=== PATIENT | female | born 1960 | race Caucasian/White ===

== ENCOUNTER → 2017-08-28 09:06 | Outpatient (CLI) | payer BC, SELFPAY ==
[2017-08-28 09:50] LABS: Basophils # 0.1 K/mm3 (0-0.2); Basophils % 0.8 % (0.1-2.0); Eosinophils # 0.2 K/mm3 (0.0-0.4); Eosinophils % 2.5 % (0.1-12.0); Hematocrit 41.5 % (37.0-47.0); Hemoglobin 12.5 g/dL (12.2-16.2); Mean Corpuscular HGB Conc 30.2 g/dL (31.8-35.4); Mean Corpuscular Hemoglobin 25.9 pg (27.0-31.2); Mean Platelet Volume 7.5 fl (7.4-10.4); Monocytes # 0.4 K/mm3 (0.1-1.0); Monocytes % 5.8 % (1.7-9.3); Neutrophils # 3.4 K/mm3 (1.8-7.8); Neutrophils % 56.9 % (37.0-80.0); Platelet Count 264 K/mm3 (142-424); Red Blood Count 4.83 M/mm3 (4.20-5.40); Red Cell Distribution Width 13.7 % (11.5-17.5)
[2017-08-28 14:24] LABS: Alanine Aminotransferase 28 U/L (12-78); Albumin Level 3.6 gm/dL (3.4-5.0); Albumin/Globulin Ratio 1.1 (1.1-1.8); Alkaline Phosphatase 84 U/L (46-116); Anion Gap 10.3 mEq/L (5-15); Aspartate Amino Transferase 19 U/L (15-37); Bilirubin,Total 0.4 mg/dL (0.2-1.0); Blood Urea Nitrogen 17 mg/dL (7-18); Calcium 9.3 mg/dL (8.5-10.1); Carbon Dioxide 31 mmol/L (21.0-32.0); Chloride 104 mmol/L (98-107); Chol/HDL Ratio 4.4 (1-3.5); Cholesterol 203 mg/dL (140-200); Creatinine,Serum 0.88 mg/dL (0.55-1.02); Estimated Glomerular Filt Rate 66 ml/min (>60); GFR (African American) 80 ML/MIN (>60); Globulin 3.2 gm/dl (1.3-3.2); Glucose 111 mg/dL (74-106); HDL Cholesterol 46 mg/dL (29-89); Iron 71 ug/dl (28-170); LDL Cholesterol 117 mg/dL (0-130); Potassium 4.3 mmoL/L (3.5-5.1); Sodium 141 mmol/L (136-145); T4 (Thyroxine) 9.5 ug/dl (4.7-13.3); Thyroid Stimulating Hormone 2.31 uIU/ml (0.358-3.740); Total Protein,Serum 6.8 gm/dL (6.4-8.2); Triglycerides 198 mg/dL (30-200); VLDL Cholesterol 40 mg/dL (0-40)
[2017-08-29 10:09] LABS: Vitamin D 25 Hydroxy 39.4 ng/mL (30.0-100.0)
== END ==
PROVIDERS: Visit Provider Family Medicine
DX: E03.9 Hypothyroidism, unspecified (principal); E78.5 Hyperlipidemia, unspecified; E61.1 Iron deficiency; F41.8 Other specified anxiety disorders; Z68.42 Body mass index [BMI] 45.0-49.9, adult
CPT/HCPCS: 36415; 80053; 80061; 82652; 83540; 84436; 84443; 85025

== ENCOUNTER → 2017-12-22 20:09 | Outpatient (REF) | payer BC, SELFPAY | LOC: LAB 20:09 | PROVIDERS: Visit Provider Nurse Practitioner Family | DX: J02.9 Acute pharyngitis, unspecified (principal) ==

== ENCOUNTER → 2018-09-07 14:00 | Outpatient (CLI) | payer BC, SELFPAY ==
--- NOTE | 2018-09-07 14:06 | XR_ITS ---
XR knee LT 4V Comparison: None History: Left knee pain. Technique: Weightbearing AP, lateral and Elias views were performed as well as oblique. Findings: Mild narrowing at the medial compartment on today's standing views. Minimal sharpening [joint margins with developing minor tricompartmental marginal osteophytes Patellofemoral joint with marginal ossified most evident along its lateral aspect. Normal position of patella.. The femoral condyle and tibial plateaus appear intact. Tibial spines intact. No significant joint effusion upper normal joint fluid suprapatella bursa. Large patient. Impression: Early degenerative changes at the left knee, Most notable at medial compartment followed by patellofemoral joint. Mild narrowing medial compartment. Minor developing marginal osteophytes
== END ==
PROVIDERS: PCP Family Medicine; Visit Provider Orthopaedic Surgery
DX: M25.562 Pain in left knee (principal)
CPT/HCPCS: 73564

== ENCOUNTER → 2018-09-19 07:41 | Outpatient (CLI) | payer BC, SELFPAY ==
--- NOTE | 2018-09-19 07:44 | MR_ITS ---
MR knee wo con HISTORY: Left knee pain and stiffness with limited range of motion .REASON: left knee pain ORDERING PHYSICIAN: Mindy Upton MD PATIENT AGE: 57 years Comparison: 09/07/2018 TECHNIQUE: Standard multiplanar multiecho sequences are performed without contrast. FINDINGS: Cruciate ligaments and collateral ligaments have an unremarkable appearance. There is some diffuse increased T1 and T2 signal of the patellar tendon superiorly consistent with tendinopathy/tendinosis. The quadriceps tendon appears intact. There are slight increased T2 signal involving the posterior horn of the medial meniscus. There is some mild degree of motion artifact on these images. There does appear to be a longitudinal tear of the posterior horn along with some chronic meniscal maceration. There are mild tricompartmental osteoarthritic changes. There is a small knee joint effusion. There is lateral subluxation of the patella. The medial patellofemoral ligament is thin medially consistent with a chronic tear of the medial patellofemoral ligament. There is a medium sized knee joint effusion in the suprapatellar region. IMPRESSION: 1. 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 2. Meniscal maceration with suspected longitudinal tear of the posterior horn of the medial meniscus 3. Lateral patellar subluxation with thinning of the medial patellofemoral ligament consistent with a chronic tear. 4. Tendinopathy/tendinosis of the patellar tendon
== END ==
PROVIDERS: PCP Family Medicine; Visit Provider Orthopaedic Surgery
DX: M25.562 Pain in left knee (principal)
CPT/HCPCS: 73721

== ENCOUNTER → 2018-10-08 07:47 | Outpatient (CLI) | payer BC, SELFPAY ==
--- NOTE | 2018-10-08 07:51 | MR_ITS ---
MR knee RT wo con HISTORY: ITS.REASON: STRAIN OF RIGHT KNEE, SUSPECT MENISCAL TEAR ORDERING PHYSICIAN: Jean Campbell MD PATIENT AGE: 57 years Comparison: None TECHNIQUE: Standard multiplanar multiecho sequences are performed without contrast. FINDINGS: Alignment and signal from the osseous marrow elements and joint spaces appear normal. There is a focus of loss of articular cartilage at the lateral facet of the patella and short linear focus of increased signal involving the articular cartilage at the lateral femoral condyle. There is a small joint effusion. The quadriceps and patellar tendons appear to be intact. There is small amount of fluid medial to the MCL. Lateral capsular complex appears intact. Retinacular areas are intact. Anterior and posterior cruciate ligaments are normal. There is a 2 mm punctate focus of intermediate signal involving the superior articular surface of the midportion of the body of the medial meniscus and a similar punctate focus involving the superior peripheral articular margin of the posterior horn of the medial meniscus. There is generalized moderate intermediate signal involving the inner and middle one third of the anterior horn of the lateral meniscus. Strain soft tissues are otherwise normal. There is no popliteal cyst. 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 A few punctate foci of intermediate signal involving superior articular surface of the body and posterior horn of the medial discus could be related to subtle punctate tears. Generalized ill-defined increased signal involving the inner in middle one third of the anterior horn of lateral meniscus suggesting diffuse tear. Strain of the MCL.
== END ==
PROVIDERS: PCP Family Medicine; Visit Provider Family Medicine
DX: S86.911A Strain of unspecified muscle(s) and tendon(s) at lower leg level, right leg, initial encounter (principal)
CPT/HCPCS: 73721

== ENCOUNTER → 2018-11-02 14:11 | Outpatient (CLI) | payer BC, SELFPAY ==
--- NOTE | 2018-11-02 14:16 | XR_ITS ---
PROCEDURE: XR KNEE RT 4V CLINICAL INDICATION: right knee pain Recent fall with injury and pain COMPARISON: No exams were available for comparison FINDINGS: There are mild osteoarthritic changes at the medial compartment and patellofemoral joint. No fracture or dislocation. There may be a suprapatellar effusion. IMPRESSION: Osteoarthritic change with suprapatellar effusion. No acute fracture Dictated by: Quentin Butts MD 11/02/2018 16:34 Signed by: <Electronically signed by Quentin Butts MD in [place]> 11/02/2018 16:34
== END ==
PROVIDERS: PCP Family Medicine; Visit Provider Orthopaedic Surgery
DX: M25.561 Pain in right knee (principal)
CPT/HCPCS: 73564

== ENCOUNTER → 2019-11-21 08:57 | Outpatient (CLI) | payer BC, SELFPAY ==
[2019-11-21 10:10] LABS: Alanine Aminotransferase 22 U/L (12-78); Albumin Level 4.3 g/dl (3.5-5.0); Albumin/Globulin Ratio 1.6 (1.1-1.8); Alkaline Phosphatase 97 U/L (38-126); Anion Gap 13.3 mEq/L (5-15); Aspartate Amino Transferase 34 U/L (14-36); Bilirubin,Total 0.4 mg/dl (0.2-1.3); Blood Urea Nitrogen 14 mg/dl (7-17); Calcium 10.3 mg/dl (8.4-10.2); Carbon Dioxide 34 mmol/L (22.0-30.0); Chloride 98 mmol/L (98-107); Chol/HDL Ratio 6.2 (1-3.5); Cholesterol 254 mg/dl (140-200); Estimated Glomerular Filt Rate 64 ml/min (>60); GFR (African American) 77 ML/MIN (>60); Globulin 2.7 g/dL (1.3-3.2); Glucose 125 mg/dl (74-100); HDL Cholesterol 41 mg/dl (40-60); Potassium 4.3 mmoL/L (3.5-5.1); Sodium 141 mmol/L (136-145); Triglycerides 370 mg/dl (30-150); VLDL Cholesterol 74 mg/dL (0-40)
[2019-11-21 10:21] LABS: Direct LDL Cholesterol 134.54 mg/dL (100-129)
[2019-11-21 10:40] LABS: Thyroid Stimulating Hormone 6.17 uIU/mL (0.465-4.68)
== END ==
PROVIDERS: Visit Provider Family Medicine
DX: E03.9 Hypothyroidism, unspecified (principal); E78.5 Hyperlipidemia, unspecified
CPT/HCPCS: 36415; 80053; 80061; 84443

== ENCOUNTER → 2020-10-09 08:17 | Outpatient (CLI) | payer BC, SELFPAY ==
[2020-10-09 10:09] LABS: Chloride 104 mmol/L (98-107)
[2020-10-09 10:10] LABS: Potassium 4.7 mmoL/L (3.5-5.1); Sodium 142 mmol/L (136-145)
[2020-10-09 10:12] LABS: Alanine Aminotransferase 21 U/L (12-78); Albumin Level 4.5 g/dl (3.5-5.0); Albumin/Globulin Ratio 1.6 (1.1-1.8); Alkaline Phosphatase 99 U/L (38-126); Anion Gap 13.7 mEq/L (5-15); Aspartate Amino Transferase 31 U/L (14-36); Bilirubin,Total 0.4 mg/dl (0.2-1.3); Blood Urea Nitrogen 13 mg/dl (7-17); Carbon Dioxide 29 mmol/L (22.0-30.0); Cholesterol 225 mg/dl (140-200); Estimated Glomerular Filt Rate 73 ml/min (>60); GFR (African American) 88 ML/MIN (>60); Globulin 2.9 g/dL (1.3-3.2); Total Protein,Serum 7.4 g/dl (6.3-8.2); Triglycerides 270 mg/dl (30-150); VLDL Cholesterol 54 mg/dL (0-40)
[2020-10-09 10:13] LABS: Chol/HDL Ratio 5.6 (1-3.5); Glucose 102 mg/dl (74-100); HDL Cholesterol 40 mg/dl (40-60)
[2020-10-09 10:29] LABS: Direct LDL Cholesterol 111.44 mg/dL (100-129)
[2020-10-09 10:47] LABS: Thyroid Stimulating Hormone 5.96 uIU/mL (0.465-4.68)
== END ==
PROVIDERS: Visit Provider Family Medicine
DX: E03.9 Hypothyroidism, unspecified (principal); E78.5 Hyperlipidemia, unspecified; R73.01 Impaired fasting glucose; F41.9 Anxiety disorder, unspecified
CPT/HCPCS: 36415; 80053; 80061; 83036; 84443

== ENCOUNTER 2021-01-25 09:20 | Emergency (ER) | payer BC, SELFPAY ==
[2021-01-25 10:20] VITALS: BP 156/87; PULSE 100; RESP 22; TEMP 36.7; O2SAT 93; BMI 52.2
--- NOTE | 2021-01-25 10:54 | HMH.EDUTC ---
[facility] [place] Clinical Impression: Bronchitis Sinusitis Qualifiers: Sinusitis location: unspecified location Chronicity: unspecified Qualified Code(s): J32.9 - Chronic sinusitis, unspecified Disposition: Home, Self-Care Condition on Discharge: Good Instructions: Sinusitis, Acute Bronchitis, DI for Sinusitis Additional Instructions: ? Start antibiotic today. Be sure to complete entire prescription even if feeling better ? Monitor temp. Tylenol every 4 hours as needed and / or ibuprofen every 6 hours as needed ( As long as your primary care physician has told you that it ok to take both. For fever/aches/pains ER if no less than 101 despite Tylenol or Motrin ? Humidifier/vaporizer or hot steamy shower ? Inhaler every 4-6 hours as needed like we discussed. If unsure how to use it, ask pharmacist to demonstrate how. Should help open airways and improve cough, wheezing, and shortness of breath *Tessalon Perles will not cause drowsiness but use at bedtime to help stop cough so that you may get some rest. Follow up IMMEDIATELY for new or worsening of symptoms OR no noticeable improvement over the next 48-72 hours. 911 immediately for any life threatening symptoms such as chest pain or difficulty breathing Prescriptions: Albuterol Sulfate [Proventil-HFA 90mcg/puff Inh] 1 - 2 puffs IH Q6HP PRN #1 each PRN Reason: Shortness Of Breath Transmission Status: Received by [facility] Benzonatate [Benzonatate 100mg cap] 100 mg PO TID PRN #15 cap PRN Reason: Cough Transmission Status: Received by [facility] Fluticasone Propionate [Flonase 50mcg nasal spray 16gm] 1 spr NS DAILY #1 each Transmission Status: Received by [facility] Azithromycin [Z-Eleno 250mg Tab] 250 mg PO DIRECTED #6 tab Transmission Status: Received by [facility] Referrals: Jean Campbell MD [Primary Care Provider] - As needed Time of Disposition: 11:51 Medical Decision Making - Gavino Inquiry Pt receiving controlled substance: No Gavino was queried for this patient: No Vital Signs: 01/25/21 10:20 01/25/21 11:47 Temperature 98.1 F 98.1 F Temperature Source Oral Pulse Rate 100 H Pulse Rate [Right Brachial] 100 H Respiratory Rate 22 22 Blood Pressure 156/87 H Blood Pressure [Right Arm] 156/87 H Blood Pressure Mean [Right Arm] 110 Blood Pressure Source [Right Arm] Automatic Cuff Blood Pressure Position [Right Arm] Sitting 02 Sat by Pulse Oximetry 93 L Oxygen Delivery Method Room Air - Lab Data Lab results reviewed: Yes: I reviewed the patient's lab results. Lab Results 01/25/21 10:30: Strep Scn Rapid Clinic Negative Orders (Tests/Meds): ED MEDICATIONS Discontinued Medications Generic Name Dose Route Start Last Admin Trade Name Sridhar PRN Reason Stop Dose Admin Ceftriaxone Sodium 1 gm 01/25/21 11:35 01/25/21 11:40 Ceftriaxone 1gm Vial IM 01/25/21 11:36 1 gm ONCE ONE Administration Lidocaine HCl 0 ml 01/25/21 11:35 01/25/21 11:40 Lidocaine 1% 5ml Pf Vial IM 01/25/21 11:36 2.1 ml ONCE ONE Administration Methylprednisolone Sodium Succinate 125 mg 01/25/21 11:35 01/25/21 11:40 Methylprednisolone Sod Succ 125mg Vial IM 01/25/21 11:36 125 mg ONCE ONE Administration ORDERS Category Date Time Status Covid-19 Nasal PCR ([facility]) Routine Lab 01/25/21 10:00 Received Strep Screen Confirmation Stat Micro 01/25/21 10:30 Received - Radiology Data #1 Image(s): Chest Image Reviewed: Yes I reviewed the patient's radiology image w/the ED provider Discussed with ED Physician No acute changes [facility] [place] - General Stated complaint: fever/chills, sore throat, cough, congestion, h/a Time Seen by Provider: 01/25/21 11:01 Mode of Arrival: Ambulatory Source of Information: Patient Limitations: No Limitations Description of Symptoms (Recalled from Triage Doc. by RN): PATIENT C/O COUGH, SORE THROAT, SINUS DRAINAGE, AND BODY ACHES SINC
[2021-01-25 11:00] LABS: UTC Strep Screen (Rapid) Negative (Negative)
--- NOTE | 2021-01-25 11:01 | XR_ITS ---
PROCEDURE: XR CHEST 2V CLINICAL HISTORY: SOB COMPARISON: CR CXR CHEST(2 VIEWS-NOT PORTABLE) from 05/15/2012 CR CXR2V XR chest 2V from 04/15/2018 FINDINGS: The cardiomediastinal silhouette and pulmonary vascularity are within normal limits. The lungs are clear without infiltrates, suspicious nodules, or pleural effusions. Bone plate is present over lower cervical spine. IMPRESSION: No acute findings. Dictated by: Quentin Butts MD 01/25/2021 12:12 Quentin Butts MD in [place] 01/25/2021 12:12
[2021-01-25 11:47] VITALS: BP 156/87; PULSE 100; RESP 22; TEMP 36.7; O2SAT 96
== END 2021-01-25 11:59 | disposition home or self-care (01) ==
PROVIDERS: Emergency Provider Nurse Practitioner; PCP Family Medicine
DX: J20.9 Acute bronchitis, unspecified (principal); J32.9 Chronic sinusitis, unspecified; G43.709 Chronic migraine without aura, not intractable, without status migrainosus; Z20.822 Contact with and (suspected) exposure to COVID-19
CPT/HCPCS: 71046; 87880; 96372; 99202; C9803; G0463; U0003; U0005

== ENCOUNTER → 2021-09-06 07:48 | Outpatient (CLI) | payer BC, SELFPAY ==
[2021-09-06 08:53] LABS: Hemoglobin A1C 6.1 % (4.0-6.0)
[2021-09-06 09:36] LABS: Alanine Aminotransferase 26 U/L (12-78); Albumin Level 3.9 g/dl (3.5-5.0); Albumin/Globulin Ratio 1.3 (1.1-1.8); Alkaline Phosphatase 98 U/L (38-126); Anion Gap 12.2 mEq/L (5-15); Aspartate Amino Transferase 36 U/L (14-36); Bilirubin,Total 0.2 mg/dl (0.2-1.3); Blood Urea Nitrogen 16 mg/dl (7-17); Calcium 9.4 mg/dl (8.4-10.2); Carbon Dioxide 27 mmol/L (22.0-30.0); Chloride 104 mmol/L (98-107); Chol/HDL Ratio 7.4 (1-3.5); Cholesterol 229 mg/dl (140-200); Estimated Glomerular Filt Rate 73 ml/min (>60); GFR (African American) 88 ML/MIN (>60); Glucose 127 mg/dl (74-100); HDL Cholesterol 31 mg/dl (40-60); Potassium 4.2 mmoL/L (3.5-5.1); Sodium 139 mmol/L (136-145); Total Protein,Serum 6.9 g/dl (6.3-8.2); Triglycerides 324 mg/dl (30-150); Uric Acid 7.7 mg/dl (2.5-6.2); VLDL Cholesterol 65 mg/dL (0-40)
[2021-09-06 09:47] LABS: Direct LDL Cholesterol 109.91 mg/dL (100-129)
[2021-09-06 10:05] LABS: Thyroid Stimulating Hormone 9.74 uIU/mL (0.465-4.68)
[2021-09-06 10:20] LABS: Erythrocyte Sedimentation Rate 22 mm/hr (0-30)
[2021-09-07 09:30] LABS: RA Latex Turbid. <10.0 IU/mL (<14.0)
[2021-09-22 08:08] LABS: Antinuclear Antibodies, IFA Positive
== END ==
PROVIDERS: PCP Family Medicine; Visit Provider Family Medicine
DX: E03.9 Hypothyroidism, unspecified (principal); R73.01 Impaired fasting glucose; E78.5 Hyperlipidemia, unspecified; F41.8 Other specified anxiety disorders; M25.50 Pain in unspecified joint
CPT/HCPCS: 36415; 80053; 80061; 83036; 84443; 84550; 85651; 86038; 86431

== ENCOUNTER 2021-12-21 20:35 | Emergency (ER) | payer BC, SELFPAY ==
[2021-12-21] VITALS (8 sets, daily range): BP systolic 115–177; BP diastolic 66–87; PULSE 100–128; RESP 14–26; TEMP 36.6–38.1; O2SAT 89–99; BMI 53.1
--- NOTE | 2021-12-21 20:26 | ECG_ITS ---
APPROVED REPORT Exam: Resting ECG HR:131 bpm ECG Measurements Heart Rate 131 AXES SD 137 P 29 QRSd 92 QRS 1 QT 335 T 49 QTc 412 Conclusion SINUS TACHYCARDIA POSSIBLE ANTERIOR MYOCARDIAL INFARCTION , PROBABLY OLD [30 ms Q WAVE IN V3/V4, OR R < 0.2 mV IN V4] ABNORMAL RHYTHM ECG UNCONFIRMED REPORT Electronically signed by : Maximus Francois MD 12/25/2021 17:47:36
--- NOTE | 2021-12-21 20:39 | XR_ITS ---
PROCEDURE INFORMATION: Exam: XR Chest Exam date and time: 12/21/2021 8:53 PM Age: 61 years old Clinical indication: Sternal or substernal pain; Additional info: Chest pain TECHNIQUE: Imaging protocol: Radiologic exam of the chest. Views: 1 view. COMPARISON: CR XR CHEST 2V 01/25/2021 11:08 AM FINDINGS: Lungs: Unremarkable. No consolidation. Low lung volumes. Mild atelectasis in the lung bases. Pleural spaces: Unremarkable. No pleural effusion. No pneumothorax. Heart/Mediastinum: Unremarkable. No cardiomegaly. Bones/joints: Unremarkable. IMPRESSION: No acute findings.
--- NOTE | 2021-12-21 20:46 | PC.NURSE ---
RAD HERE FOR PORT CHEST
[2021-12-21 20:48] LABS: Coronavirus 19, PCR Not Detected (NotDetected); Influenza A, PCR Not Detected (NotDetected); Influenza B, PCR Not Detected (NotDetected)
--- NOTE | 2021-12-21 20:53 | PC.NURSE ---
Patient arrived to ER with a large jacket, cardigan and gloves on. Patient was febrile upon arrival, however, we will reassess the patients fever once patient has sat without the layers on.
[2021-12-21 21:24] LABS: Alanine Aminotransferase 85 U/L (12-78); Albumin Level 4.3 g/dl (3.5-5.0); Albumin/Globulin Ratio 1.3 (1.1-1.8); Alkaline Phosphatase 205 U/L (38-126); Anion Gap 17.9 mEq/L (5-15); Aspartate Amino Transferase 173 U/L (14-36); Blood Urea Nitrogen 15 mg/dl (7-17); Calcium 9.2 mg/dl (8.4-10.2); Carbon Dioxide 26 mmol/L (22.0-30.0); Chloride 99 mmol/L (98-107); Creatinine Clearance Estimated 48 mL/min (50-200); Estimated Glomerular Filt Rate 72 ml/min (>60); GFR (African American) 88 ML/MIN (>60); Globulin 3.4 g/dL (1.3-3.2); Glucose 114 mg/dl (74-100); Magnesium 1.4 mg/dl (1.6-2.3); Potassium 3.9 mmoL/L (3.5-5.1); Sodium 139 mmol/L (136-145); Total Protein,Serum 7.7 g/dl (6.3-8.2)
[2021-12-21 21:25] LABS: Erythrocyte Sedimentation Rate 20 mm/hr (0-30)
[2021-12-21 21:29] LABS: C-Reactive Protein 42.5 mg/L (0-4)
[2021-12-21 21:42] LABS: Troponin I < 0.01 ng/ml (0.00-0.034)
[2021-12-21 21:43] LABS: Procalcitonin 0.474 ng/mL (0.0-2.0)
--- NOTE | 2021-12-21 21:45 | HMH.EDCP ---
Discharge Plan Disposition Patient Disposition: Home, Self-Care Prescriptions Prescriptions: New cefdinir [cefdinir] 300 mg capsule 300 mg PO BID Qty: 14 0RF No Action duloxetine [Cymbalta] 30 mg capsule,delayed release(DR/EC) 90 mg PO DAILY diclofenac sodium 100 mg tablet extended release 24 hr 100 mg PO DAILY cholecalciferol (vitamin D3) 2,000 unit capsule 2,000 unit PO DAILY montelukast 10 mg tablet 10 mg PO QPM baclofen 20 mg tablet 20 mg PO DAILY trazodone 100 mg tablet 150 mg PO DAILY cyclobenzaprine [Flexeril] 10 mg Tablet 10 mg PO HS clonazepam 1 mg tablet 1 mg PO BID Label Comments: TAKE 1 TABLET BY MOUTH TWICE DAILY NEEDED rizatriptan [Maxalt-CRISIS MANAGER] 10 mg Tablet,Disintegrating 10 mg PO Q2H PRN (Reason: migraines) Rx Instructions: do not exceed 3 doses per 24 hrs duloxetine 30 mg capsule,delayed release(DR/EC) 30 mg PO DAILY Label Comments: TAKE 3 CAPSULES BY MOUTH ONCE DAILY Benefiber Plus Calcium 3 gram-300 mg/8.8 gram Powder 3 g PO DAILY levothyroxine 88 MCG tablet 88 mcg PO DAILY ranitidine HCl 75 MG tablet 75 mg PO BID ferrous sulfate 325 MG tablet 325 mg PO DAILY Referrals Follow up/Referrals: Jean Campbell MD [Primary Care Provider] - See instructions Clinical Impressions Clinical Impression: Abdominal pain, Gallbladder attack Instructions Patient Instructions: Gallstones Discharge ED Provider: Angelo Bowles Chest Pain HPI General Chief Complaint: Chest Pain Stated Complaint: CHEST PAIN Time Seen by Provider: 12/21/21 21:45 Mode of Arrival: Wheelchair Source of Information: Patient, Relative and Medical Record Limitations: No Limitations Description of Symptoms (Recalled from ER Triage Doc. by RN): Pt states that she began to have substernal chest pain that radiates into her back and under her left breast at 1700 this evening. States she was watching television when the pain started. Patient states that for the past hour she has had severe nausea and vomiting. Pt c/o chills throughout the day. History of Present Illness HPI narrative: pt with chills and had epigastric pain with rad to back with nausea and vomiting complaint: chest pain Onset (ago): day(s) Pain location: left chest Severity: moderate Risk Factors for CAD: Hypertension and Family Hx of CAD ROGELIO Score for Non-Stemi Age of Patient: 60-69 years old Heart Rate: 70-89 bpm Systolic Blood Pressure: 140-159 mmHg Serum Creatinine: 0.80-1.19 mg/dl CHF Killip Class: I-No CHF Other Risk Factors: None Non-Stemi Risk Score: 98 Related Data On Oral Contraceptives: No Home Medications Medication Instructions Recorded Confirmed baclofen 20 mg tablet 20 mg PO DAILY MUSCLE RELAXER 12/22/17 12/21/21 cholecalciferol (vitamin D3) 50 2,000 unit PO DAILY Supplement 12/22/17 12/21/21 mcg (2,000 unit) capsule diclofenac sodium 100 mg 100 mg PO DAILY Pain 12/22/17 12/21/21 tablet,extended release 24 hr duloxetine 30 mg capsule,delayed 90 mg PO DAILY Depression 12/22/17 12/21/21 release (Cymbalta) montelukast 10 mg tablet 10 mg PO QPM Asthma 12/22/17 12/21/21 trazodone 100 mg tablet 150 mg PO DAILY SLEEP 12/22/17 12/21/21 ferrous sulfate 325 mg (65 mg 325 mg PO DAILY Supplement 04/15/18 12/21/21 iron) tablet levothyroxine 88 mcg tablet 88 mcg PO DAILY THYROID 04/15/18 12/21/21 ranitidine HCl 75 mg tablet 75 mg PO BID GERD 04/15/18 12/21/21 clonazepam 1 mg tablet 1 mg PO BID Anxiety 12/21/21 12/21/21 cyclobenzaprine 10 mg tablet 10 mg PO HS muscle relaxer 12/21/21 12/21/21 duloxetine 30 mg capsule,delayed 30 mg PO DAILY antidepressant 12/21/21 12/21/21 release rizatriptan 10 mg disintegrating 10 mg PO Q2H PRN migraines 12/21/21 12/21/21 tablet (Maxalt-CRISIS MANAGER) wheat dextrin 3 gram-calcium 3 g PO DAILY constipation 12/21/21 12/21/21 gluc,lactate 300 mg/8.8 gram oral powder Previous R
[2021-12-21 21:47] LABS: NT Pro Brain Natriuretic Pep. 35.8 pg/mL (0-125)
--- NOTE | 2021-12-21 21:47 | CT_ITS ---
PROCEDURE INFORMATION: Exam: CT Abdomen And Pelvis Without Contrast Exam date and time: 12/21/2021 9:53 PM Age: 61 years old Clinical indication: Abdominal pain; Epigastric; Additional info: Epigastric pain TECHNIQUE: Imaging protocol: Computed tomography of the abdomen and pelvis without contrast. Radiation optimization: All CT scans at this facility use at least one of these dose optimization techniques: automated exposure control; mA and/or kV adjustment per patient size (includes targeted exams where dose is matched to clinical indication); or iterative reconstruction. COMPARISON: ABDPELW CT ABD PELVIS W/ CONTRAST 12/04/2016 3:15 PM FINDINGS: Lungs: In the lung bases there is scattered atelectasis. Heart: Cardiomegaly. Liver: Fatty liver. Gallbladder and bile ducts: Distended gallbladder and sludge. Pancreas: Normal. No ductal dilation. Spleen: Normal. No splenomegaly. Adrenal glands: Normal. No mass. Kidneys and ureters: Normal. No hydronephrosis. Stomach and bowel: Unremarkable. No obstruction. No mucosal thickening. Appendix: Appendix not clearly identified but no secondary signs of appendicitis. Intraperitoneal space: Unremarkable. No free air. No significant fluid collection. Vasculature: Unremarkable. No abdominal aortic aneurysm. Lymph nodes: Unremarkable. No enlarged lymph nodes. Urinary bladder: Unremarkable as visualized. Reproductive: Unremarkable as visualized. Bones/joints: Degenerative changes in the lumbar spine. Soft tissues: Unremarkable. IMPRESSION: Distended gallbladder with sludge. Correlate for right upper quadrant pain.
[2021-12-21 21:54] LABS: T4 (Thyroxine) 11.6 ug/dl (5.53-11.0)
--- NOTE | 2021-12-21 21:56 | PC.NURSE ---
PT GOING TO CT
[2021-12-21 21:57] LABS: Amylase 52 U/L (30-110); Lipase 142 U/L (23-300)
[2021-12-21 22:09] LABS: Basophils % 0.5 % (0.1-2.0); Eosinophils # 0.1 K/mm3 (0.0-0.4); Eosinophils % 1.3 % (0.1-12.0); Hematocrit 42.5 % (37.0-47.0); Hemoglobin 13.5 g/dL (12.2-16.2); Lymphocytes # 0.8 K/mm3 (0.7-4.5); Lymphocytes % 11.5 % (10-50); Mean Corpuscular HGB Conc 31.8 g/dL (31.8-35.4); Mean Corpuscular Hemoglobin 28.1 pg (27.0-31.2); Mean Corpuscular Volume 88.3 fl (81-99); Mean Platelet Volume 8.7 fl (7.4-10.4); Monocytes # 0.1 K/mm3 (0.1-1.0); Monocytes % 1.4 % (1.7-9.3); Neutrophils # 5.6 K/mm3 (1.8-7.8); Neutrophils % 85.3 % (37.0-80.0); Platelet Count 239 K/mm3 (142-424); Red Blood Count 4.82 M/mm3 (4.20-5.40); Red Cell Distribution Width 15.2 % (11.5-17.5); White Blood Count 6.6 K/mm3 (4.8-10.8)
[2021-12-21 22:20] LABS: MANUAL DIFFERENTIAL MANUAL DIFFERENTIAL (MANUAL DIFF)
[2021-12-21 22:36] LABS: Lymphocytes % 16 % (10-50); Monocytes % 1 % (2-9); Neutrophils % 83 % (42-76); Total Cells Counted 100
--- NOTE | 2021-12-21 22:38 | PC.NURSE ---
Patient ambulated independently to the restroom with daughter. Assisted back to bed where patient is resting comfortably.
[2021-12-21 22:39] LABS: Polychromasia 1+; Stomatocytes 1+; Tear Drop Cells 1+
--- NOTE | 2021-12-21 22:44 | PC.NURSE ---
RESP HERE FOR NEB
[2021-12-21 23:08] LABS: Platelet Estimate Normal
== END 2021-12-21 23:55 | disposition home or self-care (01) ==
PROVIDERS: Emergency Provider Emergency Medicine; PCP Family Medicine
DX: K81.0 Acute cholecystitis (principal); R07.9 Chest pain, unspecified; Z79.899 Other long term (current) drug therapy; Z88.6 Allergy status to analgesic agent; F32.A Depression, unspecified; J45.909 Unspecified asthma, uncomplicated; E03.9 Hypothyroidism, unspecified; K21.9 Gastro-esophageal reflux disease without esophagitis; F41.9 Anxiety disorder, unspecified; J30.2 Other seasonal allergic rhinitis; G43.909 Migraine, unspecified, not intractable, without status migrainosus; Z87.19 Personal history of other diseases of the digestive system
CPT/HCPCS: 71045; 74176; 80053; 82150; 83690; 83735; 83880; 84145; 84436; 84443; 84484; 85007; 85025; 85651; 86140; 93005; 94640; 96365; 96366; 96367; 96375; 99285; C9803; J1335; J2405; U0003; U0005

== ENCOUNTER → 2022-04-19 13:58 | Outpatient (CLI) | payer BC, SELFPAY ==
[2022-04-19 15:18] LABS: Basophils # 0.1 K/mm3 (0-0.2); Basophils % 0.8 % (0.1-2.0); Eosinophils # 0.2 K/mm3 (0.0-0.4); Eosinophils % 2.2 % (0.1-12.0); Hematocrit 41.7 % (37.0-47.0); Hemoglobin 13.3 g/dL (12.2-16.2); Lymphocytes % 38.3 % (10-50); Mean Corpuscular HGB Conc 31.9 g/dL (31.8-35.4); Mean Corpuscular Volume 87.6 fl (81-99); Mean Platelet Volume 8.4 fl (7.4-10.4); Monocytes # 0.5 K/mm3 (0.1-1.0); Monocytes % 5.1 % (1.7-9.3); Neutrophils # 5.6 K/mm3 (1.8-7.8); Neutrophils % 53.7 % (37.0-80.0); Platelet Count 305 K/mm3 (142-424); Red Blood Count 4.76 M/mm3 (4.20-5.40); Red Cell Distribution Width 15.3 % (11.5-17.5); White Blood Count 10.4 K/mm3 (4.8-10.8)
[2022-04-19 16:18] LABS: Alanine Aminotransferase 26 U/L (12-78); Albumin Level 4.9 g/dl (3.5-5.0); Albumin/Globulin Ratio 1.5 (1.1-1.8); Alkaline Phosphatase 104 U/L (38-126); Anion Gap 11.5 mEq/L (5-15); Aspartate Amino Transferase 38 U/L (14-36); Bilirubin,Total 0.5 mg/dl (0.2-1.3); Blood Urea Nitrogen 17 mg/dl (7-17); Calcium 9.9 mg/dl (8.4-10.2); Carbon Dioxide 28 mmol/L (22.0-30.0); Chloride 104 mmol/L (98-107); Estimated Glomerular Filt Rate 56 ml/min (>60); GFR (African American) 68 ML/MIN (>60); Globulin 3.3 g/dL (1.3-3.2); Glucose 89 mg/dl (74-100); Potassium 4.5 mmoL/L (3.5-5.1); Sodium 139 mmol/L (136-145); Total Protein,Serum 8.2 g/dl (6.3-8.2)
== END ==
PROVIDERS: PCP Family Medicine; Visit Provider Obstetrics & Gynecology
DX: N95.0 Postmenopausal bleeding (principal)
CPT/HCPCS: 36415; 80053; 85025

== ENCOUNTER 2022-04-25 06:09 | Day surgery (SDC) | payer BC, SELFPAY ==
[2022-04-19 10:50] VITALS: BMI 54.2
[2022-04-25] VITALS (13 sets, daily range): BP systolic 131–181; BP diastolic 75–100; PULSE 82–95; RESP 12–18; TEMP 36.2–36.8; O2SAT 92–95
--- NOTE | 2022-04-25 07:33 | EXP.ANES.CKL ---
[facility] Disclaimer: The information contained in this section may have been updated after the patient was seen, as this information can be updated by other users. Medical History Anxiety History of endometrial hyperplasia Hypothyroidism Panic attack Post-menopausal bleeding Restless leg syndrome Seasonal allergies Sleep apnea Surgical History H/O tubal ligation History of back surgery cervicle lumbar History of total right knee replacement Family History Other Thyroid disorder Social History Smoking Status: Never smoker alcohol intake: never substance use type: denies use current occupational status: other Travel in the last 8 weeks: None household members: spouse housing: house lives independently: Yes marital status: education level: college caffeine: Yes special alfredito needs: No agree to transfusion: No do you feel safe at home: Yes victim of physical abuse: No victim of emotional abuse: No victim of sexual abuse: No would you like helpful sources: No [facility] Anesthesia Checklist Patient Identification Patient Identification: Verbal (Name & ) Structural Data Admitted From: Home Planned Operative Procedure/s: d/c hyst,my Consent for Planned Operative Procedure(s) Verified: Yes NPO Status Verified Time NPO: 00:00 Additional verifications Anesthesia Reactions: No Hx Blood Transfusions: No Blood Transfusion Reaction: No Airway Assessment C-Spine Mobility Assessed: Yes TMJ Mobility Assessed: Yes Dentition: Good Dentition Neurological Assessment Level of Consciousness: Awake, Alert and Appropriate Anesthesia Plan Anesthesia Risk discussed: Yes Anesthesia Plan: Verified ASA Class: III Anesthesia Type: General
--- NOTE | 2022-04-25 08:44 | EXP.ANES.I ---
[facility] Anesthesia Record Part I Anesthesia Record I Intake, IV Amount: 200 Estimated blood loss (mL): 50 Urine output (mL): 0 Blood Pressure: 163/100 SaO2: 92 Pulse Rate: 95 Respiratory Rate: 12 Temperature: 98.2 F Patient is:: Drowsy and Nasal O2 Stable to PACU at:: 08:52
--- NOTE | 2022-04-25 12:07 | P.OP_ITS ---
Date of procedure: 04/25/22 Pre-op Diagnosis:: 1. Postmenopausal bleeding 2. Morbid obesity Post-op Diagnosis:: Same Procedure performed:: D&C Hysteroscopy Myosure excision of uterine masses Surgeon:: Alejandra Oilver MD EDUCATION SUPERVISOR:: Jose Dorman Anesthesia: GETA Estimated blood loss (mL): 5 Operative findings:: Thickened, proliferative endometrium several uterine masses, both anterior and posterior cavity wall Operative note:: The patient was taken to the OR and general anesthesia administered without difficulty. She was prepped/draped in lithotomy position. The cervix was dilated without difficulty and hysteroscopic evaluation performed. Thickened, proliferative endometrial tissue was visualized throughout the endometrial cavity, which appeared very abnormal for a 61 year old postmenopausal woman. Several polypoid masses were also visualized within the uterus, on both anterior and posterior cavity wall. The Myosure was used to excise these masses and to biopsy the endometrial tissue throughout the cavity. Sharp curettage was also performed for additional endometrial biopsy. Once this was completed, all instruments were removed from her uterus and vagina. She was taken out of lithotomy position, awakened from anesthesia and taken to the PACU in stable condition. All sponge, needle & instrument counts correct. EBL 5cc. Condition: stable Disposition: PACU Specimens:: Endometrial curettings Complications:: None
--- NOTE | 2022-04-26 09:43 | P.PNANES_ITS ---
[facility] Anesthesia Record Part II Anesthesia Record Part II Discharge Time: 09:02 Destination: [facility] PACU nurse assessment reviewed?: Yes Patient Condition:: Good Anesthesia Complications:: None Swallowing reflex intact?: Yes Cyanosis?: No Blood Pressure: 150/75 Pulse Rate: 89 Temperature: 97.1 F Mental Status: Alert & Oriented Pain level:: 8 Nausea and/or vomitting:: None Intake, IV Amount: 1,500
[2022-04-26 09:44] VITALS: BP 150/75; PULSE 89; TEMP 36.2
== END 2022-04-25 10:15 | disposition home or self-care (01) ==
PROVIDERS: PCP Family Medicine; Visit Provider Obstetrics & Gynecology
PROC: (CPT 58558; principal; 2022-04-25 07:30)
DX: N95.0 Postmenopausal bleeding (principal); E66.01 Morbid (severe) obesity due to excess calories; N84.0 Polyp of corpus uteri
CPT/HCPCS: 58558; 96374

== ENCOUNTER → 2023-02-15 09:52 | Outpatient (CLI) | payer BC, SELFPAY ==
[2023-02-15 11:15] LABS: Alanine Aminotransferase 27 U/L (12-78); Albumin Level 4.2 g/dl (3.5-5.0); Albumin/Globulin Ratio 1.4 (1.1-1.8); Alkaline Phosphatase 96 U/L (38-126); Anion Gap 11.3 mEq/L (5-15); Aspartate Amino Transferase 39 U/L (14-36); Bilirubin,Total 0.6 mg/dl (0.2-1.3); Blood Urea Nitrogen 13 mg/dl (7-17); Calcium 8.8 mg/dl (8.4-10.2); Carbon Dioxide 28 mmol/L (22.0-30.0); Chloride 102 mmol/L (98-107); Chol/HDL Ratio 6.6 (1-3.5); Cholesterol 204 mg/dl (140-200); Estimated Glomerular Filt Rate 72 ml/min (>60); GFR (African American) 87 ML/MIN (>60); Glucose 128 mg/dl (74-100); HDL Cholesterol 31 mg/dl (40-60); Potassium 4.3 mmoL/L (3.5-5.1); Sodium 137 mmol/L (136-145); Total Protein,Serum 7.2 g/dl (6.3-8.2); Triglycerides 289 mg/dl (30-150); VLDL Cholesterol 58 mg/dL (0-40)
[2023-02-15 11:26] LABS: Direct LDL Cholesterol 104.43 mg/dL (100-129)
[2023-02-15 11:46] LABS: Thyroid Stimulating Hormone 1.86 uIU/mL (0.465-4.68)
== END ==
PROVIDERS: PCP Family Medicine; Visit Provider Family Medicine
DX: E03.9 Hypothyroidism, unspecified (principal); E78.5 Hyperlipidemia, unspecified
CPT/HCPCS: 36415; 80053; 80061; 84443

== ENCOUNTER → 2023-03-09 08:15 | Outpatient (CLI) | payer BC, SELFPAY ==
--- NOTE | 2023-03-09 08:21 | MM_ITS ---
PROCEDURE INFORMATION: Exam: MG Bilateral Screening 3D Mammography Exam date and time: 03/09/2023 8:19 AM Age: 62 years old Clinical indication: Screening examination TECHNIQUE: Imaging protocol: Bilateral Screening tomosynthesis and 2D mammography including computer-aided detection (CAD) when performed. COMPARISON: 1. MG MAMMO SCREENING DIGITAL TOMOSYNTHESIS BILATERAL W CAD 01/24/2017 1:07 PM 2. MG MAMMO SCREENING BILATERAL W CAD 01/28/2015 9:38 AM FINDINGS: MAMMOGRAPHY: Breast composition: The breasts are almost entirely fatty. Mass: None. Architectural distortion: None. Calcifications: No suspicious calcifications. Asymmetric density: None. Skin thickening: None. Axillary adenopathy: None. IMPRESSION: No mammographic evidence of malignancy. Annual screening is recommended unless otherwise clinically indicated. ASSESSMENT: BI-RADS Category 1: Negative
--- NOTE | 2023-03-09 09:07 | XR_ITS ---
FINAL REPORT CLINICAL HISTORY: POSTMENOPAUSAL COMPARISON: None FINDINGS: Using L1-4, the bone mineral density of the spine is 1.116 g/cm2, corresponding to T-score of 1.3, within normal limits. Using the left hip, the bone mineral density of the femoral neck is 1.113 g/cm2, corresponding to a T-score of 1.4, within normal limits. Using the right hip, the bone mineral density of the femoral neck is 0.958 g/cm2, corresponding to a T-score of 1.0, within normal limits. FRAX not reported because all T-scores at or above -1.0. NOTE: T-score: Standard deviation compared with peak bone mass of young adult mean. *Following the recommendations of the International Society of Bone densitometry, classification of hip BMD is based on the lower of two T-scores; total hip or femoral neck. IMPRESSION: Normal bone mineral density of the lumbar spine and hips. Reviewed, Interpreted and Dictated by Fran Graham MD Transcribed by Alfreda Mccloud Authenticated and [facility]
== END ==
PROVIDERS: PCP Family Medicine; Visit Provider Family Medicine
DX: Z12.39 Encounter for other screening for malignant neoplasm of breast (principal); Z78.0 Asymptomatic menopausal state
CPT/HCPCS: 77063; 77067; 77080

== ENCOUNTER 2023-06-02 16:33 | Emergency (ER) | payer BC, SELFPAY ==
[2023-06-02 16:55] VITALS: BP 133/85; PULSE 96; RESP 24; TEMP 36.6; O2SAT 93; BMI 52.7
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
[2023-06-02 17:19] LABS: UTC Strep Screen (Rapid) Negative (Negative)
[2023-06-02 17:31] VITALS: BP 133/85; PULSE 96; RESP 24; TEMP 36.6; O2SAT 98
== END 2023-06-02 17:54 | disposition home or self-care (01) ==
PROVIDERS: Emergency Provider Nurse Practitioner; PCP Family Medicine
DX: J01.90 Acute sinusitis, unspecified (principal); J02.9 Acute pharyngitis, unspecified; R05.9 Cough, unspecified; F41.0 Panic disorder [episodic paroxysmal anxiety]; E03.9 Hypothyroidism, unspecified; G47.30 Sleep apnea, unspecified
CPT/HCPCS: 87880; 99212; 99214; G0463

== ENCOUNTER 2023-07-28 09:40 | Outpatient (CLI) | payer BC, SELFPAY ==
[2023-07-28 11:33] LABS: Alanine Aminotransferase 26 U/L (12-78); Albumin Level 4.4 g/dl (3.5-5.0); Albumin/Globulin Ratio 1.4 (1.1-1.8); Alkaline Phosphatase 110 U/L (38-126); Anion Gap 12.5 mEq/L (5-15); Aspartate Amino Transferase 39 U/L (14-36); Bilirubin,Total 0.7 mg/dl (0.2-1.3); Blood Urea Nitrogen 16 mg/dl (7-17); Calcium 9.6 mg/dl (8.4-10.2); Carbon Dioxide 30 mmol/L (22.0-30.0); Chloride 102 mmol/L (98-107); Chol/HDL Ratio 6.1 (1-3.5); Cholesterol 218 mg/dl (140-200); Estimated Glomerular Filt Rate 63 ml/min (>60); GFR (African American) 76 ML/MIN (>60); Globulin 3.1 g/dL (1.3-3.2); Glucose 127 mg/dl (74-100); HDL Cholesterol 36 mg/dl (40-60); Potassium 4.5 mmoL/L (3.5-5.1); Sodium 140 mmol/L (136-145); Total Protein,Serum 7.5 g/dl (6.3-8.2); Triglycerides 296 mg/dl (30-150); VLDL Cholesterol 59 mg/dL (0-40)
[2023-07-28 11:45] LABS: Direct LDL Cholesterol 110.11 mg/dL (100-129)
[2023-07-28 11:51] LABS: T4 (Thyroxine) 12.7 ug/dl (5.53-11.0)
[2023-07-28 12:04] LABS: Thyroid Stimulating Hormone 6.35 uIU/mL (0.465-4.68)
== END 2023-07-28 23:59 | disposition home or self-care (01) ==
LOC: LAB 09:41
PROVIDERS: PCP Family Medicine; Visit Provider Family Medicine
DX: E03.9 Hypothyroidism, unspecified (principal); E78.5 Hyperlipidemia, unspecified
CPT/HCPCS: 36415; 80053; 80061; 84436; 84443

== ENCOUNTER 2023-12-12 09:00 | Outpatient (CLI) | payer MEDICARE, SELFPAY ==
--- NOTE | 2023-12-12 09:10 | XR_ITS ---
FINAL REPORT CLINICAL HISTORY: left knee pain COMPARISON: None FINDINGS: LEFT KNEE acute fracture or dislocation. Severe tricompartment degenerative change is present. There is mild lateral subluxation of the proximal tibia. Bony osteophytes are noted. Soft tissues are unremarkable. IMPRESSION: Severe tricompartment degenerative change without acute bony abnormality. Reviewed, Interpreted and Dictated by Urbano Watson MD Transcribed by Courtney Sibley Authenticated and [facility]
== END 2023-12-12 23:59 | disposition home or self-care (01) ==
LOC: RAD 09:06
PROVIDERS: PCP Family Medicine; Visit Provider Orthopaedic Surgery
DX: M25.562 Pain in left knee (principal); M17.12 Unilateral primary osteoarthritis, left knee
CPT/HCPCS: 73562

== ENCOUNTER 2024-05-28 06:58 | Outpatient (CLI) | payer MEDICARE, SELFPAY ==
--- NOTE | 2024-05-28 07:03 | CT_ITS ---
FINAL REPORT TECHNIQUE: Axial images were obtained of the lumbar spine by computed tomography. Coronal and sagittal reconstruction process performed. This study was performed with techniques to keep radiation doses as low as reasonably achievable (ALARA). Individualized dose reduction techniques using automated exposure control or adjustment of mA and/or kV according to the patient''s size were employed. CLINICAL HISTORY: LBP FINDINGS: There is mild lumbar scoliosis convex to the right. There is significant disc space narrowing at L1-2, L4-5, and L5-S1. Vacuum disc phenomenon is seen throughout the lumbar discs with sparing at the L2 level. The vertebral body heights are normal. T12-L1: No significant disc bulge or protrusion. L1-2: Moderate diffuse disc bulge. Endplate hypertrophy. Mild spinal and bilateral neuroforaminal narrowing. L2-3: No significant disc bulge or protrusion. L3-4: Mild diffuse disc bulge with endplate hypertrophy. Bilateral facet hypertrophy. Moderate to high-grade spinal and left neuroforaminal narrowing. Moderate right neuroforaminal narrowing. L4-5: Mild diffuse disc bulge with mild bilateral neuroforaminal narrowing. L5-S1: Mild diffuse disc bulge with endplate hypertrophy. Mild bilateral neuroforaminal narrowing. IMPRESSION: Multilevel degenerative disc disease, most pronounced at L3-4 where there is moderate to high-grade spinal and left neuroforaminal narrowing. Reviewed, Interpreted and Dictated by Fran Graham MD Transcribed by Laura Pelayo Authenticated and [facility][1]
== END 2024-05-28 23:59 | disposition home or self-care (01) ==
LOC: RAD 06:59
PROVIDERS: PCP Family Medicine; Visit Provider Family Medicine
DX: M54.50 Low back pain, unspecified (principal); M51.9 Unspecified thoracic, thoracolumbar and lumbosacral intervertebral disc disorder
CPT/HCPCS: 72131

== ENCOUNTER 2024-06-12 10:59 | Outpatient (POV) | payer MEDICARE, SELFPAY ==
[2024-06-12 11:22] VITALS: BP 190/82; PULSE 84; RESP 18; O2SAT 93; BMI 53.1
--- NOTE | 2024-06-12 12:10 | EXP.PAIN.OV ---
HPI Data of Consult Patient: new to practice Consult date: 06/12/24 Requesting Physician: Lazara Haynes APRN Primary Care Provider: Ari Arce MD Consult Narrative Reason for consult: Low back pain, bilateral hip pain, bilateral knee pain History of present illness: Ms. Payne is a 63 year old female who presents today as a new patient. She is a referral from Dr. Arce's office. Today she rates her pain an 8 out of 10. Patient does state that she has low back pain with numbness that does go into her right leg. She does also have bilateral hip pain. Patient does state that it is hard to gauge how bad her right leg symptoms are because she has had a right knee replacements as well. Patient states that she was scheduled for a left knee replacement however had to cancel this due to her being hospitalized. Patient does feel like the increased walking related to him being hospitalized did aggravate her overall symptoms. Patient states that it has been very prominent since February or around that time. She describes it as an aching, throbbing sensation with numbness and tingling and pressure. She states the pain is interfering with her ability perform activities of daily living such as cooking and cleaning. Patient states the pain is worse with increased activity and that she is not sleeping well due to the pain. She does state that resting does help however often the prolonged positioning is also very aggravating. Patient did buy a doughnut pillow and states this does help some along with Tylenol and ibuprofen. Patient has been taking baclofen from an outside provider and feels like overall these just make her sleep but do not seem to make a big difference on her pain. She has tried ice and topicals daily and that it will temporarily help. She denies any recent physical therapy or chiropractor therapy. She does state that she did have a discectomy in her lumbar spine and a cervical fusion back in the s and these really did help. Patient denies any back injections but has had some knee injections that did not provide significant relief. Her Gavino has been reviewed and is appropriate. CC: Lazara Haynes APRN [facility] Disclaimer: The information contained in this section may have been updated after the patient was seen, as this information can be updated by other users. Medical History Status post hysteroscopy History of endometrial hyperplasia Post-menopausal bleeding Restless leg syndrome Sleep apnea Seasonal allergies Panic attack Anxiety Hypothyroidism Surgical History History of back surgery cervicle lumbar H/O tubal ligation History of total right knee replacement Family History Other Thyroid disorder Social History (Updated 06/12/24 @ 11:24 by Gris Pike RN) Smoking Status: Never smoker alcohol intake: never substance use type: denies use current occupational status: other Travel in the last 8 weeks: None household members: spouse housing: house lives independently: Yes marital status: education level: college caffeine: Yes special alfredito needs: No agree to transfusion: No do you feel safe at home: Yes victim of physical abuse: No victim of emotional abuse: No victim of sexual abuse: No would you like helpful sources: No Review of Systems Review of Systems Review of systems:: pertinent systems reviewed and negative unless documented below Review of systems (narrative): Review of Systems: General: No recent weight changes, no fever, no sleep disturbances Respiratory: No cough, no shortness of air, no recurring pulmonary infections Cardiovascular/peripheral vascular: No chest pain, no palpitations, no edema, no shortness of breath Gastrointestinal: No new onset incontinence, normal bowel movements reported Genitourinary: No new onset incontinence Musculoskeletal: Low back pain, bilateral hip pain, bilateral knee pain Psychiatric: [Normal mood/affect] Neurological: [Denies weakness in extremities], [denies balance issues] Meds Home Medications and Allergies Home Medications ?Medication ?Instructions ?Recorded ?Confirmed ?Type cholecalciferol (vitamin D3) 50 2,000 unit PO DAILY Supplement 12/22/17 06/12/24 History mcg (2,000 unit) capsule diclofenac sodium 100 mg 100 mg PO DAILY Pain 12/22/17 06/12/24 History tablet,extended release 24 hr montelukast 10 mg tablet 10 mg PO QPM Asthma 12/22/17 06/12/24 History trazodone 100 mg tablet 150 mg PO DAILY SLEEP 12/22/17 06/12/24 History ferrous sulfate 325 mg (65 mg 325 mg PO DAILY Supplement 04/15/18 06/12/24 History iron) tablet levothyroxine 88 mcg tablet 88 mcg PO DAILY THYROID 04/15/18 06/12/24 History ranitidine HCl 75 mg tablet 75 mg PO BID GERD 04/15/18 06/12/24 History clonazepam 1 mg tablet 1 mg PO BID Anxiety 12/21/21 06/12/24 History cyclobenzaprine 10 mg tablet 10 mg PO HS muscle relaxer 12/21/21 06/12/24 History duloxetine 30 mg capsule,delayed 90 mg PO DAILY antidepressant 12/21/21 06/12/24 History release rizatriptan 10 mg disintegrating 10 mg PO Q2H PRN migraines 12/21/21 06/12/24 History tablet (Maxalt-BUNCH BREAKER MACHINE OPERATOR) docosahexaenoic acid (dha)-epa 120 1 cap PO DAILY Cholesterol 04/05/22 06/12/24 History mg-180 mg capsule (Fish Oil) wheat dextrin 3 gram/3.5 gram oral 1 packet PO DAILY constipation 04/05/22 06/12/24 History powder packet (Benefiber Clear Sugar Free(dextrin)) baclofen 20 mg tablet 40 mg PO HS RSL 04/19/22 06/12/24 History prednisone 10 mg tablet 10 mg PO BID 5 days #10 tabs 06/02/23 06/12/24 Rx New Prescriptions to Start Prescriptions: Allergies Allergy/AdvReac Type Severity Reaction Status Date / Time codeine (CODEINE) Allergy Unknown Verified 12/12/23 10:16 Objective Vital signs: Pulse Resp BP Pulse Ox O2 Del Method 84 18 190/82 H 93 L Room Air 06/12/24 11:22 06/12/24 11:22 06/12/24 11:22 06/12/24 11:22 06/12/24 11:22 Narrative: Physical Exam: General: Alert and oriented x3, no acute distress, pleasant and cooperative Lungs: Respirations even and unlabored, symmetrical chest expansion Eyes: PERRL Musculoskeletal: Flexion and extension of lumbar [spine] somewhat guarded secondary to pain, [antalgic gait noted] point tenderness along bilateral SIs with positive bilateral Toni's, Lise's, Gaenslen's, compression and distraction exam Neurological: Speech clear, no gross sensory deficit Additional findings Additional findings: FINDINGS: There is mild lumbar scoliosis convex to the right. There is significant disc space narrowing at L1-2, L4-5, and L5-S1. Vacuum disc phenomenon is seen throughout the lumbar discs with sparing at the L2 level. The vertebral body heights are normal. T12-L1: No significant disc bulge or protrusion. L1-2: Moderate diffuse disc bulge. Endplate hypertrophy. Mild spinal and bilateral neuroforaminal narrowing. L2-3: No significant disc bulge or protrusion. L3-4: Mild diffuse disc bulge with endplate hypertrophy. Bilateral facet hypertrophy. Moderate to high-grade spinal and left neuroforaminal narrowing. Moderate right neuroforaminal narrowing. L4-5: Mild diffuse disc bulge with mild bilateral neuroforaminal narrowing. L5-S1: Mild diffuse disc bulge with endplate hypertrophy. Mild bilateral neuroforaminal narrowing. IMPRESSION: Multilevel degenerative disc disease, most pronounced at L3-4 where there is moderate to high-grade spinal and left neuroforaminal narrowing. Reviewed, Interpreted and Dictated by Fran Graham MD Transcribed by Laura Pelayo Authenticated and [facility] Assessment and Plan *Assessment and plan (1) Degenerative disc disease: Status: Acute Category: Medical (2) Bilateral knee pain: Status: Acute Category: Medical Code(s): M25.561 - Pain in right knee; M25.562 - Pain in left knee (3) Bilateral hip pain: Status: Acute Category: Medical Code(s): M25.551 - Pain in right hip; M25.552 - Pain in left hip (4) Bilateral sacroiliitis: Status: Acute Category: Medical Code(s): M46.1 - Sacroiliitis, not elsewhere classified Plan Patient is experiencing significant pain in multiple locations. Patient did have extreme point tenderness on her mid low back around the area of the L3 vertebra. I did discuss with the patient in future I do believe that she would benefit from both lumbar epidural at the L3-L4 level where she has significant narrowing as well as bilateral SI injections. Patient did have point tenderness along her SI joints during today's visit. Patient is still hesitant regarding injection therapy. I have counseled her that she can take all the time she needs. I will order her a compounded cream and send in a prescription of methocarbamol 750 mg 3 times daily as needed with a 2-week supply. Patient will return to clinic in 2 weeks for reevaluation of symptoms and plan of care. Patient has been instructed to contact the clinic with any concerns before the next appointment. Dr. Carreno has reviewed this note and agrees with this plan of care. This note was dictated using voice recognition software and make contain errors or omissions. All injections are used with Lidocaine, Bupivacaine and Depo Medrol. Occasionally urine drug screen is needed to verify patient's compliance with our office pain contract. This is ordered based off specific treatments related to chronic pain with the potential to abuse certain medications.
== END 2024-06-12 23:59 | disposition home or self-care (01) ==
PROVIDERS: PCP Family Medicine; Visit Provider Nurse Practitioner Family
DX: M25.561 Pain in right knee (principal); M25.562 Pain in left knee; M25.551 Pain in right hip; M25.552 Pain in left hip; M46.1 Sacroiliitis, not elsewhere classified; Z96.651 Presence of right artificial knee joint; Z73.89 Other problems related to life management difficulty
CPT/HCPCS: 99202; G0463

== ENCOUNTER 2024-06-26 13:17 | Outpatient (POV) | payer MEDICARE, SELFPAY ==
--- NOTE | 2024-06-26 13:39 | A.OFFVIS_ITS ---
[facility] Disclaimer: The information contained in this section may have been updated after the patient was seen, as this information can be updated by other users. Medical History Status post hysteroscopy History of endometrial hyperplasia Post-menopausal bleeding Restless leg syndrome Sleep apnea Seasonal allergies Panic attack Anxiety Hypothyroidism Surgical History History of back surgery cervicle lumbar H/O tubal ligation History of total right knee replacement Family History Other Thyroid disorder Social History (Updated 06/12/24 @ 11:24 by Gris Pike RN) Smoking Status: Never smoker alcohol intake: never substance use type: denies use current occupational status: other Travel in the last 8 weeks: None household members: spouse housing: house lives independently: Yes marital status: education level: college caffeine: Yes special alfredito needs: No agree to transfusion: No do you feel safe at home: Yes victim of physical abuse: No victim of emotional abuse: No victim of sexual abuse: No would you like helpful sources: No PM Subjective & Objective Subjective Subjective:: Patient is a pleasant 63-year-old female who presents today for follow-up and worsening pain. She rates her pain today a 9 out of 10. Patient does state her pain is all in her low back and hips. She denies any new trauma or injury from her last visit. She does state the pain is interfering with her ability perform activities of daily living such as cooking and cleaning. Patient does feel like the left side is much worse than the right today. She states she does have to change positions frequently due to the worsening symptoms. She does state that the methocarbamol 750 mg 3 times a day that we did order did seem to help some. She denied any side effects. Patient did also get the compounded cream however she states that she has a lot of difficulty getting this on to her back by herself so she has not really been able to evaluate how much improvement it is given. Patient has continued conservative therapy including at home exercising and stretching for longer than 12 weeks. Patient does have a longstanding history of discectomy in her lumbar spine and a cervical fusion. Patient does also have chronic pain related to her knees. Her Gavino has been reviewed and is appropriate. Review of Systems: General: No recent weight changes, no fever, no sleep disturbances Respiratory: No cough, no shortness of air, no recurring pulmonary infections Cardiovascular/peripheral vascular: No chest pain, no palpitations, no edema, no shortness of breath Gastrointestinal: No new onset incontinence, normal bowel movements reported Genitourinary: No new onset incontinence Musculoskeletal: Low back pain, bilateral hip pain Psychiatric: [Normal mood/affect] Neurological: [Denies weakness in extremities], [denies balance issues] Pain at rest (0-10 scale): 9 Objective Objective:: Physical Exam: General: Alert and oriented x3, no acute distress, pleasant and cooperative Lungs: Respirations even and unlabored, symmetrical chest expansion Eyes: PERRL Musculoskeletal: Flexion and extension of lumbar [spine] somewhat guarded secondary to pain, [antalgic gait noted] point tenderness along bilateral SIs with positive bilateral Toni's, Lise's, Gaenslen's, compression and distraction exam Neurological: Speech clear, no gross sensory deficit Has patient had previous pain injection?: No Conservative treatment options previously tried: Home exercise plan Length of treatment: Longer than 12 weeks Meds Home Medications and Allergies Home Medications ?Medication ?Instructions ?Recorded ?Confirmed ?Type cholecalciferol (vitamin D3) 50 2,000 unit PO DAILY Supplement 12/22/17 06/12/24 History mcg (2,000 unit) capsule diclofenac sodium 100 mg 100 mg PO DAILY Pain 12/22/17 06/12/24 History tablet,extended release 24 hr montelukast 10 mg tablet 10 mg PO QPM Asthma 12/22/17 06/12/24 History trazodone 100 mg tablet 150 mg PO DAILY SLEEP 12/22/17 06/12/24 History ferrous sulfate 325 mg (65 mg 325 mg PO DAILY Supplement 04/15/18 06/12/24 History iron) tablet levothyroxine 88 mcg tablet 88 mcg PO DAILY THYROID 04/15/18 06/12/24 History ranitidine HCl 75 mg tablet 75 mg PO BID GERD 04/15/18 06/12/24 History clonazepam 1 mg tablet 1 mg PO BID Anxiety 12/21/21 06/12/24 History cyclobenzaprine 10 mg tablet 10 mg PO HS muscle relaxer 12/21/21 06/12/24 History duloxetine 30 mg capsule,delayed 90 mg PO DAILY antidepressant 10/04/22 03/26/25 History release rizatriptan 10 mg disintegrating 10 mg PO Q2H PRN migraines 12/21/21 06/12/24 History tablet (Maxalt-CUSTOMER ENGAGEMENT MANAGER) docosahexaenoic acid (dha)-epa 120 1 cap PO DAILY Cholesterol 04/05/22 06/12/24 History mg-180 mg capsule (Fish Oil) wheat dextrin 3 gram/3.5 gram oral 1 packet PO DAILY constipation 04/05/22 06/12/24 History powder packet (Benefiber Clear Sugar Free(dextrin)) baclofen 20 mg tablet 40 mg PO HS RSL 04/19/22 06/12/24 History prednisone 10 mg tablet 10 mg PO BID 5 days #10 tabs 06/02/23 06/12/24 Rx methocarbamol 750 mg tablet 750 mg PO TID #42 tabs 06/12/24 Rx New Prescriptions to Start Prescriptions: Allergies Allergy/AdvReac Type Severity Reaction Status Date / Time codeine (CODEINE) Allergy Unknown Verified 12/12/23 10:16 Assessment and Plan *Assessment and plan (1) Bilateral sacroiliitis: Status: Acute Category: Medical Code(s): M46.1 - Sacroiliitis, not elsewhere classified Plan Patient is experiencing worsening pain along the low back and bilateral hips. They did have limited range of motion of the lumbar spine along with point tenderness along bilateral SI joints and a positive bilateral Toni's, Lise's, Gaenslen's, compression and distraction exam. I did discuss with the patient that I do believe they would benefit from bilateral SI injections. Risk and benefits were discussed with the patient and they would like to proceed forward with this option. Patient has tried and failed conservative therapy including continued at home stretching exercise for longer than 12 weeks. Patient has had this pain for longer than 5 months. This will be a diagnostic injection with less than 1 mL of solution to be given. Patient does have bad knees and does not think she will be able to get onto our procedure table. I did discuss with her that we are unable to have them stand and lean and access the SI joints. Patient agrees with this plan of care. If she does get significant relief in future we will look at repeating injections when the pain does return with the plan to possibly proceed forward with SI fusion at a later date if it is appropriate. Patient will be scheduled for bilateral SI injections without fluoroscopy. I will also refill her methocarbamol and provide a 1 month supply of this medication. Patient has been instructed to contact the clinic with any concerns before the next appointment. Dr. Carreno has reviewed this note and agrees with this plan of care. This note was dictated using voice recognition software and make contain errors or omissions. All injections are used with Lidocaine or Bupivacaine and Depo Medrol.
[2024-06-26 14:24] VITALS: BP 150/78; PULSE 86; RESP 18; O2SAT 94; BMI 53.1
--- OUTSIDE RECORDS SUMMARY | 2024-06-27 22:16 | XMS_ITS ---
Author Organization Unknown Immunizations Date Vaccine DateAdministered TimeAdministered VaccineCode Dose Strength Unit Phone Specialist DueDate CptCode CvxCode ManufacturerCode LocationCode AdministeredBy 12/14 00:00 :00 Fluzone Quad (6months &older) 12/14/2021 10:57:00 10:57:00 [id number] 0.5 mL [employer] 09/17/19 00:00:00 [id number] [employer] Sharmaine Morrison
== END 2024-06-26 23:59 | disposition home or self-care (01) ==
PROVIDERS: PCP Family Medicine; Visit Provider Nurse Practitioner Family
DX: M46.1 Sacroiliitis, not elsewhere classified (principal); Z96.651 Presence of right artificial knee joint; Z73.89 Other problems related to life management difficulty
CPT/HCPCS: 99212; G0463

== ENCOUNTER 2024-11-14 15:00 | Outpatient (RCR) | payer MEDICARE, SELFPAY | END 2024-11-14 23:59 | disposition home or self-care (01) | LOC: PT 15:00 | PROVIDERS: PCP Family Medicine; Visit Provider Physician Assistant | DX: Z47.89 Encounter for other orthopedic aftercare (principal); Z96.652 Presence of left artificial knee joint | CPT/HCPCS: 97110; 97140; 97161 ==

== ENCOUNTER 2024-11-25 15:11 | Outpatient (CLI) | payer MEDICARE, SELFPAY ==
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
--- OUTSIDE RECORDS SUMMARY | 2024-11-11 11:56 | XMS_ITS ---
Author Organization [facility] Address [address] [place] [address] [address] [place] [id number] Care Team Providers Care Ex Chef Name Role Phone Bernadette Campbell Primary Care Provider [phone] REASON FOR VISIT due simon Encounters Encounter Location Date Provider Diagnosis [facility] [address] [place] [address] [address] [facility] [address] [place] [id number] 11/11/2024 Bernadette Campbell Breast cancer screening Z12.31 Assessments Encounter Date Diagnosis (ICD Code) Assessment Notes Treatment Notes Treatment Clinical Notes Section Notes 11/11/2024 Breast cancer screening (ICD-10 - Z12.31) Plan Of Treatment Pending Test Test Name Order Date Mammogram 11/11/2024 Next Appt Details Provider Name:Bernadette Hutton, 02/06/2025 09:00:00 AM, [address] [place] [address], [address], [place], [id number], Progress Notes * DULCE ALBARADO SDOB: (64 yo F)Acc No.[id number]:11/11/2024 Patient: DULCE VILLARREAL :1960 A ge:64 Y S ex:Female Address:[address] [place], [place] [address] [address] Subjective: * Chief Complaints: * D ue simon * Medical History: * Surgical History: * Hospitalization/Major Diagno stic Procedure: * Medications: Objective: * Vitals: * Physical Examination: Assessment: * Assessment: 1. B reast cancer screening - Z12.31 (Primary) Plan: * Treatment: * Procedure Codes: * true * Date: Generated for Dianne verdugo/Natalya/Sameer on: 0 11/25/2024 03:13 PM EDT
--- NOTE | 2024-11-25 15:13 | MM_ITS ---
PROCEDURE INFORMATION: Exam: MG Bilateral Screening 3D Mammography Exam date and time: 11/25/2024 3:17 PM Age: 64 years old Clinical indication: Screening examination TECHNIQUE: Imaging protocol: Bilateral Screening tomosynthesis and 2D mammography including computer-aided detection (CAD) when performed. COMPARISON: 1. MG MM DIG SCREENING MAMM BI W/CAD 03/09/2023 8:19 AM 2. MG MAMMO SCREENING DIGITAL TOMOSYNTHESIS BILATERAL W CAD 01/24/2017 1:07 PM FINDINGS: MAMMOGRAPHY: Breast composition: The breasts are almost entirely fatty. Mass: None. Architectural distortion: None. Calcifications: No suspicious calcifications. Asymmetric density: None. Skin thickening: None. Axillary adenopathy: None. IMPRESSION: No mammographic evidence of malignancy. Annual screening is recommended unless otherwise clinically indicated. ASSESSMENT: BI-RADS Category 1: Negative.
--- OUTSIDE RECORDS SUMMARY | 2024-11-25 15:14 | XMS_ITS | Patient Health Record ---
Author Organization [facility] Address [address] [place] [address] Care Team Providers Care Wirer Maintenance Name Role Phone Yamileth Lopez Unavailable [phone] Allergies Allergen (clinical drug ingredient) Drug/Non Drug Allergy documented on EMR Reaction Allergy Type Onset Date Status BANDAIDS (uncoded) Unspecified Allergy 0 Active CODEINE PHOSPHATE (CODEINE PHOSPHATE SOLN) Unspecified Drug Allergy 08/04/2009 Active PREDNISONE (uncoded) Unspecified Allergy 013 Active Reason For Referral No Information Problems Problem Type SNOMED Code ICD Code Onset Dates Problem Status W/U Status Risk Notes Problem Gynecological examination normal (738453877133222 ) Cervical smear, as part of routine gynecological examination (Z01.419) 01/25/20 17 Active confirmed Annual without abnormal findings Plan Of Treatment No Information Medical (General) History Medical History History ICD Code Endometriosis Obesity Mitral valve prolapse HTN Acid reflux UTIs Urinary incontinence Breast Pain Anxiety Depression Chronic back pain A Routine ABORTIONS: 0 SOCIAL HX: no tob or etoh lives with husb ( x 10 yrs) works @ [employer] (parttime) SOCIAL HX: no tob or etoh lives with husb ( x 10 yrs) works @ [employer] (parttime) DICLOFENAC SODIUM SOLUTION SYNTHROID TABLET CYMBALTA CAPSULE DELAYED RELEASE PARTICL ES FERROUS SULFATE TABLET Surgical History Surgery Date(Month/Year) Lower Spinal fusion repair- 1994 Neck spinal repair- 2000, BTL
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
--- OUTSIDE RECORDS SUMMARY | 2024-11-25 15:14 | XMS_ITS | Clinical Summary ---
Author Organization [facility] Address [address] [place] [address] Care Team Providers Care Engine Maintenance Mechanic Name Role Phone Jean Campbell MD Primary Care Provider Allergies Active Allergy Reactions Criticality Noted Date Comments Codeine Itching Low 01/17/2019 Macadamia Nut Oil Nausea And Vomiting Medium Venlafaxine Other (See Comments) Low 02/08/2024 vivid dreams Medications montelukast (SINGULAIR) 10 MG tablet Take 1 tablet by mouth Every Night. Active rizatriptan CHEESE PACKER (MAXALT-CHEESE PACKER) 10 MG disintegrating tablet Take 1 tablet by mouth 1 (One) Time As Needed for Migraine. May repeat in 2 hours if needed Active DULoxetine (CYMBALTA) 30 MG capsule Take 3 capsules by mouth Daily. Active clonazePAM (KlonoPIN) 1 MG tablet Take 1 tablet by mouth every night at bedtime. Active ferrous sulfate 325 (65 FE) MG tablet Take 1 tablet by mouth Daily With Breakfast. Active Loratadine-Pseudoe phedrine (PX ALLERGY RELIEF D, LORATID, PO) Take 1 tablet by mouth Daily. Active raNITIdine HCl (RANITIDINE 150 MAX STRENGTH PO) Take 1 tablet by mouth Every Morning. Active baclofen (LIORESAL) 20 MG tablet Take 0.5 tablets by mouth every night at bedtime. Active Cholecalciferol (VITAMIN D-3 PO) Take 2,000 Units by mouth Daily. Active docusate sodium (COLACE) 100 MG capsule Take 1 capsule by mouth 2 (Two) Times a Day. 60 capsule 01/31/2019 12:53 PM EST 9 Active cyclobenzaprine (FLEXERIL) 10 MG tablet 1 tablet. Active lansoprazole (PREVACID) 15 MG capsule Take 1 capsule by mouth Daily. Active rOPINIRole (REQUIP) 1 MG tablet Take 1 tablet by mouth Every Night. Active hydroCHLOROthiazid e 25 MG tablet Take 1 tablet by mouth Daily As Needed (swelling). 4 Active levothyroxine (SYNTHROID, LEVOTHROID) 150 MCG tablet Take 1 tablet by mouth Daily. Active diclofenac sodium (VOTAREN XR) 100 MG 24 hr tablet Take 1 tablet by mouth Daily. Active traZODone (DESYREL) 100 MG tablet Take 1.5 tablets by mouth Every Night. Active Loratadine 10 MG capsule Take 1 capsule by mouth Daily. Active esomeprazole (nexIUM) 40 MG capsule Take 1 capsule by mouth Daily. Active methocarbamol (ROBAXIN) 750 MG tablet Take 1 tablet by mouth 3 (Three) Times a Day. Active oxyCODONE (ROXICODONE) 5 MG immediate release tabletIndications: Status post left knee replacement Take 1 to 2 tablets every 4-6 hours as needed for pain 40 tablet 09/19/2024 5:18 PM EDT 5 Active aspirin (ASPIR) 81 MG EC tablet Take 1 tablet by mouth 2 (Two) Times a Day. 60 tablet 09/19/2024 5:18 PM EDT 5 Active ropivacaine (NAROPIN) 0.2 % infusion (INFUSYSTEM) 2 mg/hr by Peripheral Nerve route Continuous. 5 Active acetaminophen (TYLENOL) 500 MG tablet Take 2 tablets by mouth Every 8 (Eight) Hours. 42 tablet 09/19/2024 5:18 PM EDT 5 Active meloxicam (Mobic) 15 MG tablet Take 1 tablet by mouth Daily. 10 tablet 09/19/2024 5:18 PM EDT 5 Active Active Problems Problem Noted Date Diagnosed Date Status post left knee replacement 09/19/2024 Obesity, morbid, BMI 50 or higher 09/19/2024 Diabetes- new dx 09/19/2024 Status post total right knee replacement 019 Arthritis of right knee 01/30/2019 Hypothyroid 01/30/2019 LORAINE on CPAP 01/30/2019 Anxiety and depression 01/30/2019 Obesity, Class III, BMI 40-49.9 (morbid obesity) 01/30/2019 Encounters Date Type Department Care Team Description 09/19/2024 9:45 AM EDT Anesthesia Event [facility] [address] [place] [address] Ronni Rajput Jr., MD 09/19/2024 9:28 AM EDT - 09/19/2024 11:41 AM EDT Surgery [facility] [address] [place] [address] Joni Sánchez MD TOTAL KNEE ARTHROPLASTY WITH CORI ROBOT [[id number] (CPT )] 09/19/2024 8:35 AM EDT Anesthesia Event Converted [facility]EST[facility] [address] [place] [address] 09/19/2024 7:50 AM EDT - 09/22/2024 3:34 PM EDT Hospital Encounter [facility] 3G [address] [place] [address] Joni Sánchez MD Status post left knee replacement (Primary Dx); Obesity, morbid, BMI 50 or higher; LORAINE on CPAP; Status post total right knee replacement Discharge Disposition: Home or Self Care 09/19/2024 Travel 09/12/2024 9:30 AM EDT Pre-Admission Testing [facility] [address] [place] [address] 09/12/2024 Travel from Last 3 Months Immunizations Immunization Administration Dates Next Due flucelvax quad pfs =>4 YRS 01/31/2019 Social History Tobacco Use Types Packs/Day Years Used Date Smoking Tobacco: Never Smokeless Tobacco: Never Alcohol Use Standard Drinks/Week Comments No 0 (1 standard drink = 0.6 oz pur e alcohol) AUDIT-C Answer Date Recorded Frequency of Alcohol Consumption Never 01/17/2019 Average Number of Drinks Not on file 019 Frequency of Binge Drinking Not on file 12/20 Abuse Screen Answer Date Recorded Feels Unsafe at Home or Work/School no 09/19/2024 Feels Threatened by Someone no 05/2024 Does Anyone Try to Keep You From Having Contact with Others or Doing Things Outside Your Home? no 09/19/2024 Physical Signs of Abuse Present no 09/19/2024 Housing Stability Answer Date Recorded Current Living Arrangements home 06/2024 Potentially Unsafe Housing Conditions Not on robert e 09/20/2024 Disabilities Answer Date Recorded Difficulty Concentrating, Remembering or Making Decisions no 09/19/2024 Difficulty Managing Errands Independently yes 09/19/2024 Education Answer Date Recorded Help with school or training? Not on file Preferred Language Guamanian 09/12/2024 Comments No Sex and Gender Information Value Date Recorded Sex Assigned at Not on file Legal Sex Female 10:46 AM EDT Gender Identity Not on file Sexual Orientation Not on file Last Filed Vital Signs Vital Sign Reading Time Taken Comments Blood Pressure 129/63 09/22/2024 6:49 AM EDT Pulse 75 09/22/2024 1:00 PM EDT Temperature 37.1 C (98.7 F) 09/22/2024 6:49 AM EDT Respiratory Rate 18 09/22/2024 6:49 AM EDT Oxygen Saturation 95% 09/22/2024 1:00 PM EDT Inhaled Oxygen Concentration - - Weight 144 kg (317 lb 7.4 oz) 09/19/2024 9:07 AM EDT Height 160 cm (5' 3 ) 09/19/2024 9:07 AM EDT Body Mass Index 56.24 09/19/2024 9:07 AM EDT Plan of Treatment Health Maintenance Due Date Last Done Comments DIABETIC EYE EXAM 1968 DIABETIC FOOT EXAM 1968 URINE MICROALBUMIN-CREATININ E RATIO (uACR) 1968 TDAP/TD VACCINES (1 - Tdap) 1977 COLOGUARD 11/04/2003 COLON CANCER SCREENING 5 YEA R SIGMOIDOSCOPY 11/04/2003 COLONOSCOPY 11/04/2003 COLORECTAL CANCER SCREENING 11/04/2003 CT COLONOGRAPHY 11/04/2003 FECAL OCCULT BLOOD TEST 11/04/2003 FIT Testing (1 year) 11/04/2003 ZOSTER VACCINE (1 of 2) 2008 DXA SCAN 01/28/2017 01/28/2015 ANNUAL WELLNESS VISIT 01/17/2019 HEPATITIS C SCREENING 01/17/2019 MAMMOGRAM 01/24/2019 01/24/2017, 01/28/2015 COVID-19 Vaccine (2023-04 5 season) 2024 01/25/2024, 01/19/2023, 03/07/2022, Additional history exists INFLUENZA VACCINE 12/18/2024 01/25/2024, , 12/14/2021, Additional history exists HEMOGLOBIN A1C 03/14/2025 09/12/2024, 01/19, 01/17/2019 Pneumococcal Vaccine 50+ Completed 01/25/2024 Goals Goal Patient Goal Type Associated Problems Recent Progress Patient-Stated? Author Autogenerat ed Goal Care Plan Autogenerated Problem Yue Chopra, Iritha Medical Devices Implanted Type Area Air Quality Engineer Device Identifier Shelf Expiration Date Model / Serial / Lot Cmt Bone Palacos R Hi/Visc 1x40 - [id number] Implanted:Qty : 2 on 01/30/2019 by Geo Dillon MD at [facility] Implant [facility] 05/17/2022 [id number] / / [id number] Insrt Art Legion Cr Hf Xlpe Sz3to4 9mm - [id number] Implanted:Qty : 1 on 01/30/2019 by Geo Dillon MD at [facility] Implant Right: Knee [employer] [id number] 11/11/2028 [id number] / / [id number] Comp Fem Legion Oxinium Cr Nrw Sz5n Rt - [id number] Implanted:Qty : 1 on 01/30/2019 by Geo Dillon MD at [facility] Implant Right: Knee [employer] [id number] 10/20/2028 [id number] / / [id number] Base Tib/Kn Gen2 Nonpor Ti Sz3 Rt - [id number] Implanted:Qty : 1 on 01/30/2019 by Geo Dillon MD at [facility] Implant Right: Knee [employer] [id number] 09/22/2028 [id number] / / [id number] Pat Gen2 Resrf 29mm - [id number] Implanted:Qty : 1 on 01/30/2019 by Geo Dillon MD at [facility] Implant Right: Knee [employer] [id number] 11/27/2028 [id number] / / [id number] Totl Kn Eulogio Moran Nephew - [id number] Implanted:Qty : 1 on 01/30/2019 by Geo Dillon MD at [facility] Implant Right: Knee [employer] CAPKNEETOTA LSN2 / / Base Tib/Kn Gen2 Nonpor Ti Sz3 Lt - [id number] Implanted:Qty : 1 on 09/19/2024 by Joni Sánchez MD at [facility] Implant Left: Knee [employer] [id number] 01/31/2034 [id number] / / [id number] Comp Fem Legion Oxinium Ps Nrw Sz5n Lt - [id number] Implanted:Qty : 1 on 09/19/2024 by Joni Sánchez MD at [facility] Implant Left: Knee [employer] [id number] 03/30/2034 [id number] / / [id number] Insrt Art/Kn Legion Ps Hf Xlpe Sz3to4 9mm - [id number] Implanted:Qty : 1 on 09/19/2024 by Joni Sánchez MD at [facility] Implant Left: Knee [employer] [id number] 12/10/2033 [id number] / / [id number] Pat Resrf Gen2 7.5x29mm - [id number] Implanted:Qty : 1 on 09/19/2024 by Joni Sánchez MD at [facility] Implant Left: Knee [employer] [id number] 04/01/2034 [id number] / / [id number] Totl Kn Eulogio Moran Nephew - [id number] Implanted:Qty : 1 on 09/19/2024 by Joni Sánchez MD at [facility] Implant Left: Knee [employer] CAPKNEETOTA LSN2 / / Cmt Bone Palacos R Hi/Visc 1x40 - [id number] Implanted:Qty : 2 on 09/19/2024 by Joni Sánchez MD at [facility] Implant Left: Knee [employer] [id number] 03/19/2029 [id number] / / [id number] Dev Contrl Tiss Stratafix Spiral Mncryl Pls Ps 3/0 30cm Ud - [id number] Implanted:Qty : 1 on 09/19/2024 by Joni Sánchez MD at [facility] Implant Left: Knee [employer] J [employer] J [id number] 12/17/2025 [id number] / / [id number] Wnd/Cls Contrl Tiss Stratafix Symm Pds Pls Ctx 60cm Walker - [id number] Implanted:Qty : 1 on 09/19/2024 by Joni Sánchez MD at [facility] Implant Left: Knee [employer] J AND J [id number] 03/19/2026 [id number] / / [id number] Procedures Procedure Name Priority Date/Time Associated Diagnosis Comments POCT GLUCOSE FINGERSTICK Routine 09/22/2024 11:40 AM EDT CBC AND DIFFERENTIAL Routine 09/22/2024 7:16 AM EDT CBC WITH AUTO DIFFERENTIAL Routine 09/22/2024 7:16 AM EDT POCT GLUCOSE FINGERSTICK Routine 09/22/2024 7:05 AM EDT POCT GLUCOSE FINGERSTICK Routine 09/21/2024 8:40 PM EDT POCT GLUCOSE FINGERSTICK Routine 09/21/2024 4:26 PM EDT POCT GLUCOSE FINGERSTICK Routine 09/21/2024 11:07 AM EDT CBC AND DIFFERENTIAL Routine 09/21/2024 7:51 AM EDT CBC WITH AUTO DIFFERENTIAL Routine 09/21/2024 7:51 AM EDT POCT GLUCOSE FINGERSTICK Routine 09/21/2024 7:30 AM EDT POCT GLUCOSE FINGERSTICK Routine 09/20/2024 8:51 PM EDT POCT GLUCOSE FINGERSTICK Routine 09/20/2024 4:07 PM EDT POCT GLUCOSE FINGERSTICK Routine 09/20/2024 11:01 AM EDT POCT GLUCOSE FINGERSTICK Routine 09/20/2024 7:06 AM EDT CBC AND DIFFERENTIAL Routine 09/20/2024 6:27 AM EDT CBC WITH AUTO DIFFERENTIAL Routine 09/20/2024 6:27 AM EDT BASIC METABOLIC PANEL Routine 09/20/2024 6:27 AM EDT POCT GLUCOSE FINGERSTICK Routine 09/19/2024 7:24 PM EDT XR KNEE 1 OR 2 VW LEFT STAT 09/19/2024 12:04 PM EDT SPINAL Routine 09/19/2024 10:12 AM EDT SC ARTHRP KNE CONDYLE&PLATU MEDIAL&LAT COMPARTMENTS 09/19/2024 9:30 AM EDT Primary localized osteoarthritis of left knee Special Needs CORI ROBOT, [employer], JR HENRY * ANESTHESIA PERIPHERAL BLOCK Routine 09/19/2024 8:32 AM EDT ECG 12-LEAD Routine 09/12/2024 10:12 AM EDT HEMOGLOBIN A1C Routine 09/12/2024 9:48 AM EDT BASIC METABOLIC PANEL Routine 09/12/2024 9:48 AM EDT CBC (NO DIFF) Routine 09/12/2024 9:48 AM EDT MAMMO SCREENING DIGITAL TOMOSYNTHESIS BILATERAL W CAD Routine 01/24/2017 1:00 PM EST Visit for screening mammogram DEXA BONE DENSITY AXIAL Routine 01/28/2015 9:05 AM EST from Last 3 Months or Most Recently Relevant to Health Maintenance Results * (ABNORMAL) POC Glucose Once (09/22/2024 11:40 AM EDT) Only the most recent of11 resultswithin the time period is included. Glucose 131(H) 70 - 130 mg/dL 09/22/2024 11:42 AM EDT [facility] Blood 09/22/2024 11:4 0 AM EDT 09/22/2024 11:42 AM EDT Joni Sánchez MD POINT OF CARE TEST ORD ERABLES Final Result [facility]
[address] [place] [address], * (ABNORMAL) CBC Auto Differential (09/22/2024 7:16 AM EDT) Only the most recent of3 resultswithin the time period is included. WBC 6.16 3.40 - 10.80 10*3/mm3 09/22/2024 9:38 AM EDT [facility] RBC 4.07 3.77 - 5.28 10*6/mm3 09/22/2024 9:38 AM EDT [facility] Hemoglobin 11.0(L) 12.0 - 15.9 g/dL 09/22/2024 9:38 AM EDT [facility] Hematocrit 36.6 34.0 - 46.6 % 09/22/2024 9:38 AM [facility] MCV 89.9 79.0 - 97.0 fL 09/22/2024 9:38 AM [facility] MCH 27.0 26.6 - 33.0 pg 09/22/2024 9:38 AM [facility] MCHC 30.1(L) 31.5 - 35.7 g/dL 09/22/2024 9:38 AM [facility] RDW 14.8 12.3 - 15.4 % 09/22/2024 9:38 AM [facility] RDW-SD 49.3 37.0 - 54.0 fl 09/22/2024 9:38 AM [facility] MPV 10.7 6.0 - 12.0 fL 09/22/2024 9:38 AM [facility] Platelets 168 140 - 450 10*3/mm3 09/22/2024 9:38 AM [facility] Neutrophil % 64.2 42.7 - 76.0 % 09/22/2024 9:38 AM [facility] Lymphocyte % 22.7 19.6 - 45.3 % 09/22/2024 9:38 AM [facility] Monocyte % 8.6 5.0 - 12.0 % 09/22/2024 9:38 AM [facility] Eosinophil % 3.2 0.3 - 6.2 % 09/22/2024 9:38 AM [facility] Basophil % 0.5 0.0 - 1.5 % 09/22/2024 9:38 AM [facility] Immature Grans % 0.8(H) 0.0 - 0.5 % 09/22/2024 9:38 AM [facility] Neutrophils, Absolute 3.95 1.70 - 7.00 10*3/mm3 09/22/2024 9:38 AM [facility] Lymphocytes, Absolute 1.40 0.70 - 3.10 10*3/mm3 09/22/2024 9:38 AM [facility] Monocytes, Absolute 0.53 0.10 - 0.90 10*3/mm3 09/22/2024 9:38 AM EDT [facility] Eosinophils, Absolute 0.20 0.00 - 0.40 10*3/mm3 09/22/2024 9:38 AM EDT [facility] Basophils, Absolute 0.03 0.00 - 0.20 10*3/mm3 09/22/2024 9:38 AM EDT [facility] Immature Grans, Absolute 0.05 0.00 - 0.05 10*3/mm3 09/22/2024 9:38 AM EDT [facility] nRBC 0.0 0.0 - 0.2 /100 WBC 09/22/2024 9:38 AM EDT [facility] Blood Venipuncture / Unknown 09/22/2024 7:16 AM EDT 09/22/2024 8:35 AM EDT Joni Sánchez MD LAB BLOOD ORDERABLES F inal Result [facility]
[address] [place] [address], * (ABNORMAL) Basic Metabolic Panel (09/20/2024 6:27 AM EDT) Only the most recent of2 resultswithin the time period is included. Glucose 226(H) 65 - 99 mg/dL 09/20/2024 7:42 AM EDT [facility] BUN 17.4 8.0 - 23.0 mg/dL 09/20/2024 7:42 AM EDT [facility] Creatinine 0.87 0.57 - 1.00 mg/dL 09/20/2024 7:42 AM EDT [facility] Sodium 140 136 - 145 mmol/L 09/20/2024 7:42 AM EDT [facility] Potassium 4.2 3.5 - 5.2 mmol/L 09/20/2024 7:42 AM EDT [facility] Comment:Slight hemolysis det ected by analyzer. Result may be falsely elevated. Chloride 102 98 - 107 mmol/L 09/20/2024 7:42 AM EDT [facility] CO2 28.0 22.0 - 29.0 mmol/L 09/20/2024 7:42 AM EDT [facility] Calcium 8.8 8.6 - 10.5 mg/dL 09/20/2024 7:42 AM EDT [facility] BUN/Creatinine Ratio 20.0 7.0 - 25.0 09/20/2024 7:42 AM EDT [facility] Anion Gap 10.0 5.0 - 15.0 mmol/L 09/20/2024 7:42 AM EDT [facility] eGFR 74.0 >60.0 mL/min/1.7 3 09/20/2024 7:42 AM EDT [facility] Blood Venipuncture / Unknown 09/20/2024 6:27 AM EDT 09/20/2024 6:59 AM EDT Narrative [facility] - 09/20/2024 7:42 AM EDT GFR Categories in Chronic Kidney Disease (CKD) GFR Category GFR (mL/min/1.73) Interpretation G1 90 or greater Normal or high (1) G2 60-89 Mild decrease (1) G3a 45-59 Mild to moderate decrease G3b 30-44 Moderate to severe decrease G4 15-29 Severe decrease G5 14 or less Kidney failure (1)In the absence of evidence of kidney disease, neither GFR category G1 or G2 fulfill the criteria for CKD. eGFR calculation 2020 CKD-EPI creatinine equation, which does not include race as a factor us Joni Sánchez MD LAB BLOOD ORDERABLES F inal Result [facility]
[address] [place] [address], * XR Knee 1 or 2 View Left (09/19/2024 12:04 PM EDT) Anatomical Region Laterality Modality Lower Extremities, Knee Left Radiogra phic Imaging 09/19/2024 12:4 6 PM EDT Impressions 09/19/2024 12:46 PM EDT Impression: Expected postoperative appearance of newly placed left total knee arthroplasty. Electronically Signed: Henry Barragan MD 09/19/2024 12:46 PM EDT Workstation ID: [id number] Narrative 09/19/2024 12:46 PM EDT XR KNEE 1 OR 2 VW LEFT Date of Exam: 09/19/2024 11:56 AM EDT Indication: Post-Op Knee Arthoplasty Comparison: None Findings: Unremarkable appearance of a newly placed total knee arthroplasty which appears in satisfactory alignment, without evidence of hardware fracture or marion-hardware lucency or periprosthetic fracture. There are expected postsurgical soft tissue changes including soft tissue swelling with subcutaneous and intra-articular air. Procedure Note Henry Barragan MD - 09/19/2024 XR KNEE 1 OR 2 VW LEFT Date of Exam: 09/19/2024 11:56 AM EDT Indication: Post-Op Knee Arthoplasty Comparison: None Findings: Unremarkable appearance of a newly placed total knee arthroplasty whichappears in satisfactory alignment, without evidence of hardware fractureor marion-hardware lucency or periprosthetic fracture. There are expectedpostsurgical soft tissue changes including soft tissue swelling with subcutaneous and intra-articularair. IMPRESSION: Impression: Expected postoperative appearance of newly placed left total kneearthroplasty. Electronically Signed: Henry Barragan MD 09/19/2024 12:46 PM EDT Workstation ID: [id number] Joni Sánchez MD IMG DIAGNOSTIC IMAGING ORDERABLES Final Result * HC BH AN SPINAL TRAY (09/19/2024 10:12 AM EDT) Narrative Fidel Rowan CRNA - 09/22/2024 5:38 AM EDT Fidel Rowan CRNA 09/19/2024 10:23 AM Spinal Block Patient reassessed immediately prior to procedure Patient location during procedure: OR Start Time: 09/19/2024 9:55 AM Indication:at surgeon's request Performed By MARIA GUADALUPE/CAA: Fidel Rowan CRNASRNA: Meghan Kumar SRNA Preanesthetic Checklist Completed: patient identified, IV checked, site marked, risks and benefits discussed, surgical consent, monitors and equipment checked, pre-op evaluation and timeout performed Spinal Block Prep: Patient Position:sitting Flare Worker:cap, gloves, sterile barriers and mask Prep:Chloraprep Patient Monitoring:blood pressure monitoring, continuous pulse oximetry and EKG Spinal Block Procedure Approach:midline Guidance:landmark technique and palpation technique Location:L3-L4 Needle Type:Quincke Needle Gauge:22 G Placement of Spinal needle event:cerebrospinal fluid aspirated Paresthesia: no Fluid Appearance:clear Medications: Mepivacaine HCl (PF) (CARBOCAINE) 1.5 % injection - Injection 4 mL - 09/19/2024 9:55:00 AM Post Assessment Patient Tolerance:patient tolerated the procedure well with no apparent complications Complications no Additional Notes Procedure: Pt assisted to sitting position, with legs in position of comfort over side of bed. Pt. instructed in optimal spine presentation, the spine was prepped/ Draped and the skin at insertion site was anesthetized with 1% Lidocaine 2 ml. The spinal needle was then advanced until CSF flow was obtained and LA was injected: first attempt JUAN MAUNEL Kumar at L4/L5. Second attempt MARIA GUADALUPE at L3/L4. us Ronni Rajput Jr., MD ANESTHESIA ORDERABLES E dited Result - Final * BH AN PERIPHERAL BLOCK CATHETER (09/19/2024 8:32 AM EDT) Narrative Fidel Rowan CRNA - 10/12/2024 3:24 PM EDT Fidel Rowan CRNA 09/19/2024 10:23 AM Peripheral Block Patient reassessed immediately prior to procedure Reason for block: at surgeon's request and post-op pain management Performed by MARIA GUADALUPE/CAA: Jonh Heaton TRANSPORTATION SPECIALIST Assisted by: Elizabeth Ribera RNSRNA: Meghan Kumar SRNA Preanesthetic Checklist Completed: patient identified, IV checked, site marked, risks and benefits discussed, surgical consent, monitors and equipment checked, pre-op evaluation and timeout performed Prep: Pt Position: supine Sterile barriers:cap, gloves, mask, sterile barriers and washed/disinfected hands Prep: ChloraPrep Patient monitoring: blood pressure monitoring, continuous pulse oximetry and EKG Procedure Performed under: spinal Guidance:ultrasound guided ULTRASOUND INTERPRETATION. Using ultrasound guidance a 20 G gauge needle was placed in close proximity to the nerve, at which point, under ultrasound guidance anesthetic was injected in the area of the nerve and spread of the anesthesia was seen on ultrasound in close proximity thereto. There were no abnormalities seen on ultrasound; a digital image was taken; and the patient tolerated the procedure with no complications. Images:still images obtained, printed/placed on chart Laterality:left Block Type:adductor canal block Injection Technique:catheter Needle Type:Tuohy and echogenic Needle Gauge:18 G Resistance on Injection: none Catheter Size:20 G (20g) Post Assessment Injection Assessment: negative aspiration for heme, incremental injection and no paresthesia on injection Patient Tolerance:comfortable throughout block Complications:no Additional Notes CATHETER A high-frequency linear transducer, with sterile cover, was placed on the anterior mid-thigh (between the anterior superior iliac spine and patella). The transducer was then moved medially to identify the Sartorius muscle (Angel), Vastus Medialis muscle (VMM), Superficial Femoral Artery (SFA) and Vein. The transducer was then moved cephalad or caudad to position the SFA in the middle of the Angel. The insertion site was prepped and draped in sterile fashion. Skin and cutaneous tissue was infiltrated with 2-5 ml of 1% Lidocaine. Using ultrasound-guidance, an 18-gauge Contiplex Ultra 360 Touhy needle was advanced in plane from lateral to medial. Preservative-free normal saline was utilized for hydro-dissection of tissue, advancement of Touhy, and to confirm needle placement below the fascial plane of the Angel where the Nerve to the VMM is located. Local anesthetic (LA) 5 ml deposited here. The Touhy needle continues its path lateral to the SFA at the level of the Saphenous Nerve. The remainder of the LA was deposited at the 10-11 o'clock position of the SFA. This injection created a space between the Angel and the SFA. Aspiration every 5 ml to prevent intravascular injection. Injection was completed with negative aspiration of blood and negative intravascular injection. Injection pressures were normal with minimal resistance. A 20-gauge Contiplex Echo catheter was placed through the needle and advance out the tip of the Touhy 3-5 cm anterior to the SFA. The Touhy needle was then removed, and final catheter position verified at the 12 o'clock position to the SFA. The catheter was secured in the usual fashion with skin glue, benzoin, steri-strips, CHG tegaderm and label noting Nerve Block Catheter . Jerk tape applied at yellow connector and catheter connection. Performed by: Fidel Rowan CRNA Ronni Rajput Jr., MD ANESTHESIA ORDERABLES E dited Result - Final * ECG 12 Lead (09/12/2024 10:12 AM EDT) QT Interval 384 ms ECG QTC Interval 442 ms ECG 09/12/2024 10:1 2 AM EDT 09/12/2024 10:34 AM EDT Narrative ECG - 09/12/2024 10:34 AM EDT Test Reason : pre-op. SOA Blood Pressure : */* mmHG Vent. Rate : 80 BPM Atrial Rate : 80 BPM P-R Int : 150 ms QRS Dur : 82 ms QT Int : 384 ms P-R-T Axes : 29 -6 26 degrees QTcB Int : 442 ms Normal sinus rhythm Moderate voltage criteria for LVH, may be normal variant ( R in aVL , [place] product ) Borderline ECG When compared with ECG of 08-Feb-2024 09:07, No significant change was found Confirmed by Cali Barbosa ([id number]) on 09/12/2024 10:34:26 AM Referred By: Confirmed By: Cali Barbosa Procedure Note Cali Barbosa MD - 09/12/2024 Test Reason : pre-op. SOA Blood Pressure : */* mmHG Vent. Rate : 80 BPM Atrial Rate : 80 BPM P-R Int : 150 ms QRS Dur : 82 ms QT Int : 384 ms P-R-T Axes : 29 -6 26 degrees QTcB Int : 442 ms Normal sinus rhythm Moderate voltage criteria for LVH, may be normal variant ( R in aVL , [place] product ) Borderline ECG When compared with ECG of 08-Feb-2024 09:07, No significant change was found Confirmed by Cali Barbosa ([id number]) on 09/12/2024 10:34:26 AM Referred By: Confirmed By: Cali Barbosa us Joni Sánchez MD ECG ORDERABLES Final Result ECG * (ABNORMAL) CBC (No Diff) (09/12/2024 9:48 AM EDT) WBC 8.13 3.40 - 10.80 10*3/mm3 09/12/2024 10:28 AM EDT [facility] RBC 4.71 3.77 - 5.28 10*6/mm3 09/12/2024 10:28 AM EDT [facility] Hemoglobin 12.8 12.0 - 15.9 g/dL 09/12/2024 10:28 AM EDT [facility] Hematocrit 41.2 34.0 - 46.6 % 09/12/2024 10:28 AM EDT [facility] MCV 87.5 79.0 - 97.0 fL 09/12/2024 10:28 AM EDT [facility] MCH 27.2 26.6 - 33.0 pg 09/12/2024 10:28 AM EDT [facility] MCHC 31.1(L) 31.5 - 35.7 g/dL 09/12/2024 10:28 AM EDT [facility] RDW 14.9 12.3 - 15.4 % 09/12/2024 10:28 AM EDT [facility] RDW-SD 47.7 37.0 - 54.0 fl 09/12/2024 10:28 AM EDT [facility] MPV 10.1 6.0 - 12.0 fL 09/12/2024 10:28 AM EDT [facility] Platelets 201 140 - 450 10*3/mm3 09/12/2024 10:28 AM EDT [facility] Blood Venipuncture / Unknown 09/12/2024 9:48 AM EDT 09/12/2024 10:23 AM EDT Joni Sánchez MD LAB BLOOD ORDERABLES F inal Result Performing Organization Address [facility] Co de Phone Number [facility]
[address] [place] [address], * (ABNORMAL) Hemoglobin A1c (09/12/2024 9:48 AM EDT) Hemoglobin A1C 7.01(H) 4.80 - 5.60 % 09/12/2024 3:54 PM EDT [facility] Blood Venipuncture / Unknown 09/12/2024 9:48 AM EDT 09/12/2024 10:23 AM EDT Narrative [facility] - 09/12/2024 3:54 PM EDT Hemoglobin A1C Ranges: Increased Risk for Diabetes 5.7% to 6.4% Diabetes >= 6.5% Diabetic Goal < 7.0% Joni Sánchez MD LAB BLOOD ORDERABLES F inal Result Performing Organization Address [facility] de Phone Number [facility]
[address] [place] [address], * Mammo Screening Digital Tomosynthesis Bilateral With CAD (01/24/2017 1:00 PM EST) Anatomical Region Laterality Modality Breast N/A Mammography 01/24/2017 1:56 PM EST Impressions 01/24/2017 1:56 PM EST Negative bilateral mammogram. RECOMMENDATION: Continue annual screening mammography. BI-RADS CATEGORY 1, NEGATIVE. CAD was utilized. The standard false-negative rate of mammography is between 10% and 25%. Complex patterns or increased breast density will markedly elevate the false-negative rate of mammography. A letter, in lay terminology, with the results of this exam will be mailed to the patient. This report was finalized on 01/24/2017 1:[address] Corazon Tejada MD. Narrative 01/24/2017 1:56 PM EST HISTORY: Screening Mammography. Low Dose full field Digital Breast Tomosynthesis examination was performed with 2D and 3D acquisitions. Examination is compared to prior examination dating back to 01/28/2015. Examination is read in conjunction with computer aided detection. FINDINGS: The breasts are almost entirely fatty. No suspicious masses, microcalcifications or areas of architectural distortion are present. us Yamileth Lopez MD IMG MAMMOGRAPHY ORDERABLES F inal Result * dexa bone density axial (01/28/2015 9:05 AM EST) Anatomical Region Laterality Modality Wrist, Hip, L-spine N/A Radiographic Imaging 01/28/2015 9:05 AM EST Narrative 01/28/2015 11:27 AM EST DUAL-ENERGY X-RAY ABSORPTIOMETRY (DXA) INDICATION- 54-year-old female for mineral densitometry COMPARISON- Baseline PROCEDURE- A DXA scan was performed using a Hologic densitometer. The lumbar spine L1-L4 was evaluated as well as both total hips. The T-score compares the patient's bone mineral density with the peak bone mass of young normal patients. According to criteria established by the World Health Organization, patients with T-scores between 1.0 and 2.5 standard deviations BELOW the mean are osteopenic (low bone mass). Patients with T-scores EQUAL TO OR GREATER than 2.5 standard deviations below the mean are osteoporotic. The Z-score compares the patient bone mineral density with age and sex matched peers. According to the International Society for Clinical Densitometry's 2007 consensus conference- In women prior to menopause and men less than age 50, Z-scores, not T-scores are preferred. A Z-score of -2.0 or lower is defined as below the expected range for age and a Z-score above -2.0 is within the expected range for age. The WHO diagnostic criteria may be applied in women in the menopausal transition. Osteoporosis cannot be diagnosed in men under age 50 on the basis of BMD alone. TECHNICAL QUALITY- The study is of good technical quality. RESULTS- Lumbar Spine- The BMD measured in the L1-L4 region is 1.116 g/cm2. The average T-score is 0.6. The Z-score is 1.8. Total Hip- The BMD measured at the left total proximal femur is 1.178 g/cm2. The T-score is 1.9. The Z-score is 2.7. Femoral Neck- The BMD measured at the left femoral neck is 0.925 g/cm2. The T-score is 0.7. The Z-score is 1.8. Total Hip- The BMD measured at the right total proximal femur is 1.006 g/cm2. The T-score is 0.5. The Z-score is 1.3. Femoral neck- The BMD measured at the right femoral neck is 0.965 g/cm2. The T score is 1.0. The Z score is 2.2. IMPRESSION- Normal bone mineral density in the lumbar spine and in both hips All the treatment decisions require clinical judgment and consideration of individual patient factors, including patient preferences, co-morbidities, previous drug use, risk factors not captured in the FRAX model (frailty, falls, vitamin D deficiency, increased bone turnover, interval significant decline in bone density) and possible under or over estimation of fracture risk by FRAX. Approaches to reduce osteoporosis related fracture risk include optimizing calcium and vitamin D status, appropriate weight bearing exercises and fall-prevention measurements. The National Osteoporosis Foundation recommends (http-//www.nof.org/hcp/practice/alaclbec-atg-dqggcvti-guidelines/clinic ans-guide) that FDA-approved medical therapies be considered in postmenopausal women and men aged equal or greater than 50 years with - a) hip or vertebral (clinical or morphometric) fracture- b) T-score of -2.5 or less at the spine or hip- c) Ten-year fracture probability by FRAX of greater than 3% for hip fracture of greater than 20% for major osteoporotic fracture. Secondary causes of bone loss should be evaluated if clinically indicated since the etiology of low BMD cannot be determined by BMD measurement alone. FOLLOWUP- Consider repeating the study in 2-3 years to reassess the patient's status or sooner if there is some new clinical indication. INTERVAL CHANGE- Not applicable. At this facility, the least significant change in the BMD at the hip with 95% confidence is 0.319406 gm/cm2 and and 0.724131 g/cm2 at the lumbar spine. Reading Radiologist- ALY LYNN Releasing Radiologist- ALY LYNN Released Date Time- 01/28/15 1127 Chip Tester- Philip Procedure Note Aly Soriano MD - 01/28/2015 DUAL-ENERGY X-RAY ABSORPTIOMETRY (DXA) INDICATION- 54-year-old female for mineral densitometry COMPARISON- Baseline PROCEDURE- A DXA scan was performed using a Hologic densitometer. The lumbar spine L1-L4 was evaluated as well as both total hips. The T-score compares the patient's bone mineral density with the peak bone mass of young normal patients. According to criteria established by the World Health Organization, patients with T-scores between 1.0 and 2.5 standard deviations BELOW the mean are osteopenic (low bone mass). Patients with T-scores EQUAL TO OR GREATER than 2.5 standard deviations below the mean are osteoporotic. The Z-score compares the patient bone mineral density with age and sex matched peers. According to the International Society for Clinical Densitometry's 2007 consensus conference- In women prior to menopause and men less than age 50, Z-scores, not T-scores are preferred. A Z-score of -2.0 or lower is defined as below the expected range for age and a Z-score above -2.0 is within the expected range for age. The WHO diagnostic criteria may be applied in women in the menopausal transition. Osteoporosis cannot be diagnosed in men under age 50 on the basis of BMD alone. TECHNICAL QUALITY- The study is of good technical quality. RESULTS- Lumbar Spine- The BMD measured in the L1-L4 region is 1.116 g/cm2. The average T-score is 0.6. The Z-score is 1.8. Total Hip- The BMD measured at the left total proximal femur is 1.178 g/cm2. The T-score is 1.9. The Z-score is 2.7. Femoral Neck- The BMD measured at the left femoral neck is 0.925 g/cm2. The T-score is 0.7. The Z-score is 1.8. Total Hip- The BMD measured at the right total proximal femur is 1.006 g/cm2. The T-score is 0.5. The Z-score is 1.3. Femoral neck- The BMD measured at the right femoral neck is 0.965 g/cm2. The T score is 1.0. The Z score is 2.2. IMPRESSION- Normal bone mineral density in the lumbar spine and in both hips All the treatment decisions require clinical judgment and consideration of individual patient factors, including patient preferences, co-morbidities, previous drug use, risk factors not captured in the FRAX model (frailty, falls, vitamin D deficiency, increased bone turnover, interval significant decline in bone density) and possible under or over estimation of fracture risk by FRAX. Approaches to reduce osteoporosis related fracture risk include optimizing calcium and vitamin D status, appropriate weight bearing exercises and fall-prevention measurements. The National Osteoporosis Foundation recommends (http-//www.nof.org/hcp/practice/izkmuhms-lzq-yydozsfd-guidelines/clinic ans-guide) that FDA-approved medical therapies be considered in postmenopausal women and men aged equal or greater than 50 years with - a) hip or vertebral (clinical or morphometric) fracture- b) T-score of -2.5 or less at the spine or hip- c) Ten-year fracture probability by FRAX of greater than 3% for hip fracture of greater than 20% for major osteoporotic fracture. Secondary causes of bone loss should be evaluated if clinically indicated since the etiology of low BMD cannot be determined by BMD measurement alone. FOLLOWUP- Consider repeating the study in 2-3 years to reassess the patient's status or sooner if there is some new clinical indication. INTERVAL CHANGE- Not applicable. At this facility, the least significant change in the BMD at the hip with 95% confidence is 0.240692 gm/cm2 and and 0.595190 g/cm2 at the lumbar spine. 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 LIVING WILL - SCAN 01/17/2019 2:17 PM [facility]G WILL/HEALTHCARE SURROGATE 10/15/2005 * CPR (Attempt to Resuscitate) (Latest Code Status on File) Date Activated Date Inactivated Comments 09/19/2024 3:48 PM 09/22/2024 5:39 PM Question Answer Comments Code Status (Patient has no pulse and is not breathing): CPR (Attempt to Resuscitate) Medical Interventions (Patie nt has pulse or is breathing): Full Support Level Of Support Discussed With: Patient * CPR (Attempt to Resuscitate) Date Activated Date Inactivated Comments 01/30/2019 1:28 PM 01/31/2019 4:07 PM Question Answer Comments Code Status (Patient has no pulse and is not breathing): CPR (Attempt to Resuscitate) Medical Interventions (Patie nt has pulse or is breathing): Full 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
== END 2024-11-25 23:59 | disposition home or self-care (01) ==
LOC: RAD 15:11
PROVIDERS: PCP Family Medicine; Visit Provider Family Medicine
DX: Z12.31 Encounter for screening mammogram for malignant neoplasm of breast (principal)
CPT/HCPCS: 77063; 77067

== ENCOUNTER 2024-12-03 14:00 | Outpatient (RCR) | payer MEDICARE, SELFPAY | END 2024-12-03 23:59 | disposition home or self-care (01) | LOC: PT 14:00 | PROVIDERS: PCP Family Medicine; Visit Provider Physician Assistant | DX: Z47.89 Encounter for other orthopedic aftercare (principal); Z96.652 Presence of left artificial knee joint | CPT/HCPCS: 97110 ==